=== PATIENT | female | born 1935 | race Caucasian/White ===

== ENCOUNTER 2019-05-23 11:40 | Inpatient (IN) | payer MEDICARE ==
[2019-05-23] MEDS ORDERED: ONDANSETRON 4 MG/2 ML VIAL IVP PRN (18:21)
[2019-05-23] MEDS ORDERED: NITROGLYCERIN SL TABS 0.4 MG TAB SUBLINGUAL PRN (18:21)
[2019-05-23] MEDS ORDERED: HEPARIN SODIUM,PORCINE 5,000 UNIT/ML 1 ML VIAL IV PRN (18:36)
[2019-05-23] MEDS ORDERED: HEPARIN SODIUM,PORCINE 5,000 UNIT/ML 1 ML VIAL IV ONE (18:36)
[2019-05-23] MEDS ORDERED: SODIUM CHLORIDE 0.9% 1,000 ML IV SCH (18:45)
[2019-05-23 19:08] LABS: Basophils # (A) 0.1 k/uL (0-0.2); Basophils % (A) 1 %; Eosinophils # (A) 0.1 k/uL (0-0.7); Eosinophils % (A) 2 %; HCT 40.6 % (34.0-46.0); HGB 13.2 gm/dL (11.4-16.0); Lymphocytes # (A) 1.8 k/uL (1.0-4.8); Lymphocytes % (A) 21 %; MCHC 32.6 g/dL (31.0-37.0); MCV 89.1 fL (80.0-100.0); Mean Platelet Volume 9.4; Monocytes # (A) 0.4 k/uL (0-1.0); Monocytes % (A) 4 %; Neutrophils # (A) 6.1 k/uL (1.3-7.7); Neutrophils % (A) 70 %; Platelet Count 144 k/uL (150-450); RBC 4.55 m/uL (3.80-5.40); RDW 12.5 % (11.5-15.5); WBC 8.6 k/uL (3.8-10.6)
[2019-05-23 19:26] LABS: INR 0.9 (<1.2); Partial Thromboplastin Time 24.4 sec (22.0-30.0); Prothrombin Time 9.9 sec (9.0-12.0)
[2019-05-23 20:41] LABS: Glucose,Whole Blood 182 mg/dL (75-99)
[2019-05-23] MEDS: METOPROLOL TARTRATE 50 MG TAB PO SCH (20:48)
[2019-05-23] MEDS: hydrALAZINE HCL 50 MG TAB PO SCH (20:48)
[2019-05-23] MEDS: INSULIN ASPART (NovoLOG) 100 UNIT/ML VIAL SQ SCH (20:55)
[2019-05-23] MEDS: HEPARIN SOD,PORK IN 0.45% NACL 25,000 UNIT in 0.45% NACL 1 250ML.BAG IV SCH (22:27)
[2019-05-24] MEDS: ACETAMINOPHEN TAB 325 MG TAB PO PRN (06:02)
[2019-05-24 06:25] LABS: Glucose,Whole Blood 149 mg/dL (75-99)
[2019-05-24] MEDS: INSULIN ASPART (NovoLOG) 100 UNIT/ML VIAL SQ SCH ×4 (06:29→21:23)
[2019-05-24 06:54] LABS: African American GFR (CKD) >90 (>60 ml/min/1.73 sqM); Anion Gap 40 mmol/L; Blood Urea Nitrogen 10 mg/dL (7-17); Carbon Dioxide 16 mmol/L (22-30); Chloride 91 mmol/L (98-107); Glucose 136 mg/dL (74-99); Non-African American GFR(CKD) >90 (>60 ml/min/1.73 sqM); Potassium 3.4 mmol/L (3.5-5.1); Sodium 147 mmol/L (137-145)
[2019-05-24 06:58] LABS: Basophils # (A) 0.1 k/uL (0-0.2); Basophils % (A) 1 %; Eosinophils # (A) 0.1 k/uL (0-0.7); Eosinophils % (A) 1 %; HGB 13.1 gm/dL (11.4-16.0); Lymphocytes # (A) 2.2 k/uL (1.0-4.8); Lymphocytes % (A) 27 %; MCH 30.2 pg (25.0-35.0); MCHC 34.4 g/dL (31.0-37.0); MCV 87.7 fL (80.0-100.0); Mean Platelet Volume 10.5; Monocytes # (A) 0.4 k/uL (0-1.0); Monocytes % (A) 5 %; Neutrophils % (A) 64 %; Platelet Count 107 k/uL (150-450); RBC 4.33 m/uL (3.80-5.40); RDW 12.6 % (11.5-15.5); WBC 7.9 k/uL (3.8-10.6)
[2019-05-24] MEDS: ASPIRIN 81 MG PO SCH (09:03)
[2019-05-24] MEDS: FAMOTIDINE 20 MG TAB PO SCH (09:03)
[2019-05-24] MEDS: hydrALAZINE HCL 50 MG TAB PO SCH ×3 (09:03→21:31)
[2019-05-24] MEDS: METOPROLOL TARTRATE 50 MG TAB PO SCH ×3 (09:03→21:31)
[2019-05-24] MEDS: LISINOPRIL 20 MG TAB PO SCH (09:04)
[2019-05-24] MEDS: amLODIPine 10 MG TAB PO SCH (09:04)
[2019-05-24] MEDS: EZETIMIBE 10 MG TAB PO SCH (09:04)
--- NOTE | 2019-05-24 10:49 | ECHOF ---
Referral Reason:triple vessel disease MEASUREMENTS -------- HEIGHT: 165.1 cm WEIGHT: 58.1 kg BP: RVIDd: 3.1 cm (< 3.3) IVSd: 1.4 cm (0.6 - 1.1) LVIDd: 3.4 cm (3.9 - 5.3) LVPWd: 1.4 cm (0.6 - 1.1) IVSs: 1.7 cm LVIDs: 2.3 cm LVPWs: 1.7 cm LAESV Index (A-L): 37.39 ml/m Ao Diam: 3.3 cm (2.0 - 3.7) AV Cusp: 1.9 cm (1.5 - 2.6) LA Diam: 3.7 cm (2.7 - 3.8) MV EXCURSION: 14.631 mm (> 18.000) MV EF SLOPE: 93 mm/s (70 - 150) EPSS: 0.5 cm MV E Palomo: 1.07 m/s MV DecT: 209 ms MV A Palomo: 1.49 m/s MV E/A Ratio: 0.72 RAP: 15.00 mmHg RVSP: 55.67 mmHg FINDINGS -------- Sinus rhythm. This was a technically good study. The left ventricular size is normal. There is moderate concentric left ventricular hypertrophy. T here is normal global left ventricular contractility. Overall left ventricular systolic function is normal with, an EF between 55 - 60 %. Increased Lap Grade II Diastolic Dysfunction. The right ventricle is mildly enlarged. LA is moderately dilated 34-39 ml/m2 The right atrial size is normal. Interatrial and interventricular septum intact. The aortic valve is trileaflet and appears structurally normal. There is no evidence of aortic regu rgitation. There is no evidence of aortic stenosis. Mild mitral annular calcification present. There is trace mitral regurgitation. [id number] tricuspid regurgitation present. There is moderate pulmonary hypertension. The r ight ventricular systolic pressure, as measured by Doppler, is 55.67mmHg. There is no pulmonic regurgitation present. The aortic root size is normal. The inferior vena cava is mildly dilated. CONCLUSIONS -------- 1. Sinus rhythm. 2. This was a technically good study. 3. The left ventricular size is normal. 4. There is moderate concentric left ventricular hypertrophy. 5. There is normal global left ventricular contractility. 6. Increased Lap Grade II Diastolic Dysfunction. 7. The right ventricle is mildly enlarged. 8. LA is moderately dilated 34-39 ml/m2 9. The right atrial size is normal. 10. Interatrial and interventricular septum intact. 11. The aortic valve is trileaflet and appears structurally normal. 12. There is no evidence of aortic regurgitation. 13. There is no evidence of aortic stenosis. 14. Mild mitral annular calcification present. 15. There is trace mitral regurgitation. 16. [id number] tricuspid regurgitation present. 17. There is moderate pulmonary hypertension. 18. The right ventricular systolic pressure, as measured by Doppler, is 55.67mmHg. 19. There is no pulmonic regurgitation present. 20. The aortic root size is normal. 21. The inferior vena cava is mildly dilated. [employer]: Kelsea Vann RDCS
[2019-05-24] MEDS: SODIUM CHLORIDE 0.9% 1,000 ML IV SCH (11:17)
[2019-05-24] MEDS: POTASSIUM CHLORIDE ER 20 MEQ TAB.ER PO SCH ×2 (11:17→12:32)
--- NOTE | 2019-05-24 11:28 | P.GSCN ---
History of Present Illness Consult date: 05/24/19 Reason for Consult: Triple-vessel coronary artery disease Requesting physician: Joaquin Yin History of present illness: This is an 83-year-old active female who follows on an outpatient basis with Dr. Trinidad. She has a previous medical history of hypertension, hyperlipidemia, type 2 diabetes, and family history of coronary artery disease. She presented to [facility] emergency room approximately a week ago with complaints of chest pain. EKG demonstrated sinus rhythm without acute ischemic changes. Troponins were negative 3. Chest x-ray demonstrated no acute process. She did spike a fever of 101 F, triggering cultures to be drawn and infectious disease to be consulted. She was discovered to have E. coli bacteremia. She was started on IV Rocephin. A heart murmur was heard. A transthoracic echocardiogram was completed demonstrating normal LV function with ejection fraction 55-60%, no wall motion abnormalities, trace mitral regurgitation with mild mitral valve prolapse and trace tricuspid regurgitation. She was recommended to undergo stress testing which was completed demonstrating reversible defect in the anteroseptal wall of the apex. Due to these findings she was recommended to have heart catheterization which was completed yesterday and which demonstrated triple-vessel coronary artery disease. Dr. Yin had her transferred to [facility] for cardiothoracic surgery evaluation. Currently she denies any chest pain or shortness of breath. She has been afebrile. She has no leukocytosis. Consultation was placed to Dr. Lr from cardiothoracic surgery for recommendations. Review of Systems Review of systems was completed and was negative except as noted. - Constitutional Reports fever - Cardiovascular Reports chest pain Past Medical History Past Medical History: Coronary Artery Disease (CAD), Diabetes Mellitus, Hyperlipidemia, Hypertension History of Any Multi-Drug Resistant Organisms: None Reported Past Surgical History: Tonsillectomy Additional Past Surgical History / Comment(s): Colonoscopy with polypectomy with Dr. Pavon Past Anesthesia/Blood Transfusion Reactions: No Reported Reaction Past Psychological History: No Psychological Hx Reported Smoking Status: Never smoker Past Alcohol Use History: None Reported Additional Past Alcohol Use History / Comment(s): Patient is a lifelong nonsmoker, no alcohol use, no illicit drug use, patient does not have home oxygen, no nebulizer, no CPAP. Past Drug Use History: None Reported - Past Family History Father Additional Family Medical History / Comment(s): Father in his 60s from a myocardial infarction with history of diabetes. Mother Additional Family Medical History / Comment(s): Mother in her 50s from a motor vehicle accident. Brother(s) Additional Family Medical History / Comment(s): Patient has one brother with heart disease. Medications and Allergies Home Medications Medication Instructions Recorded Confirmed Type Aspirin EC [Ecotrin] 81 mg PO DIRECTED 02/19/15 05/23/19 History Benazepril HCl [Lotensin] 30 mg PO DAILY 02/19/15 05/23/19 History Nadolol [Corgard] 40 mg PO DIRECTED 02/19/15 05/23/19 History amLODIPine [Norvasc] 10 mg PO DAILY 02/19/15 05/23/19 History Ascorbic Acid [Vitamin C] 2,000 mg PO DAILY 05/23/19 05/23/19 History Benazepril HCl [Lotensin] 20 mg PO HS 05/23/19 05/23/19 History Calcium Carbonate [Calcium] 600 mg PO DAILY 05/23/19 05/23/19 History Cinnamon Bark [Cinnamon] 1,000 mg PO DAILY 05/23/19 05/23/19 History Ezetimibe [Zetia] 10 mg PO DAILY 05/23/19 05/23/19 History Garlic 1 tab PO DAILY 05/23/19 05/23/19 History Glucosam/Oleksandr-Msm1/C/Stewart/Bosw 1 tab PO BID 05/23/19 05/23/19 History [Glucosamine-Chondroitin Tablet] Magnesium 200 mg PO DAILY 05/23/19 05/23/19 History Nadolol 60 mg PO DIRECTED 05/23/19 05/23/19 History Vitamin B Complex 1 cap PO DAILY 05/23/19 05/23/19 History Zinc Gluconate [Zinc] 50 mg PO DAILY 05/23/19 05/23/19 History Allergies Allergy/AdvReac Type Severity Reaction Status Date / Time [place] And Derivatives Allergy Unknown Verified 05/23/19 20:52 [[place]] Penicillins Allergy Unknown Verified 05/23/19 20:52 venom-honey bee Allergy Unknown Verified 05/23/19 20:52 [bee venom (honey bee)] cortisone AdvReac Flushed/Hot Verified 05/23/19 20:52 feeling Surgical - Exam Vital Signs Temp Pulse Resp BP Pulse Ox 98 F 68 18 147/65 99 05/23/19 18:05 05/23/19 18:05 05/23/19 18:05 05/23/19 18:05 05/23/19 18:05 - General well developed, well nourished, no distress, no pain - Eyes PERRL, normal ocular movement - ENT no hearing loss - Neck no masses, no bruits, trachea midline - Respiratory Lungs sounds clear bilaterally. Respirations even, nonlabored. Currently on room air with oxygen saturation 97%. No chest wall deformities. No clubbing or cyanosis present. - Cardiovascular S1, S2 present. Systolic murmur present. Regular rate and rhythm, sinus rhythm on telemetry. Palpable peripheral pulses bilaterally. No edema present. No calf pain or tenderness noted. - Abdomen Abdomen: soft, non tender, bowel sounds - Genitourinary Deferred - Rectum Deferred - Integumentary no rash, no growths - Neurologic normal coordination, normal sensation - Musculoskeletal normal gait, normal posture - Psychiatric oriented to time, oriented to person, oriented to place, speech is normal, memory intact Results - Labs 05/24/19 06:02 05/24/19 06:02 Abnormal Lab Results - Last 24 Hours (Table) 05/23/19 05/23/19 05/24/19 Range/Units 18:58 20:40 06:02 Plt Count 144 L 107 L (150-450) k/uL Sodium (137-145) mmol/L Potassium (3.5-5.1) mmol/L Chloride (98-107) mmol/L Carbon Dioxide (22-30) mmol/L Creatinine (0.52-1.04) mg/dL Glucose (74-99) mg/dL POC Glucose (mg/dL) 182 H (75-99) mg/dL Calcium (8.4-10.2) mg/dL 05/24/19 05/24/19 Range/Units 06:02 06:23 Plt Count (150-450) k/uL Sodium 147 H (137-145) mmol/L Potassium 3.4 L (3.5-5.1) mmol/L Chloride 91 L (98-107) mmol/L Carbon Dioxide 16 L (22-30) mmol/L Creatinine 0.37 L (0.52-1.04) mg/dL Glucose 136 H (74-99) mg/dL POC Glucose (mg/dL) 149 H (75-99) mg/dL Calcium 5.0 L* (8.4-10.2) mg/dL Diabetes panel 05/24/19 Range/Units 06:02 Sodium 147 H (137-145) mmol/L Potassium 3.4 L (3.5-5.1) mmol/L Chloride 91 L (98-107) mmol/L Carbon Dioxide 16 L (22-30) mmol/L BUN 10 (7-17) mg/dL Creatinine 0.37 L (0.52-1.04) mg/dL Glucose 136 H (74-99) mg/dL Calcium 5.0 L* (8.4-10.2) mg/dL Calcium panel 05/24/19 Range/Units 06:02 Calcium 5.0 L* (8.4-10.2) mg/dL Pituitary panel 05/24/19 Range/Units 06:02 Sodium 147 H (137-145) mmol/L Potassium 3.4 L (3.5-5.1) mmol/L Chloride 91 L (98-107) mmol/L Carbon Dioxide 16 L (22-30) mmol/L BUN 10 (7-17) mg/dL Creatinine 0.37 L (0.52-1.04) mg/dL Glucose 136 H (74-99) mg/dL Calcium 5.0 L* (8.4-10.2) mg/dL Adrenal panel 05/24/19 Range/Units 06:02 Sodium 147 H (137-145) mmol/L Potassium 3.4 L (3.5-5.1) mmol/L Chloride 91 L (98-107) mmol/L Carbon Dioxide 16 L (22-30) mmol/L BUN 10 (7-17) mg/dL Creatinine 0.37 L (0.52-1.04) mg/dL Glucose 136 H (74-99) mg/dL Calcium 5.0 L* (8.4-10.2) mg/dL - Imaging Chest x-ray: report reviewed EKG: image reviewed Additional studies: Cardiac catheterization films uploaded to our system and reviewed with Dr. Archibald Assessment and Plan Assessment: 1. Triple-vessel coronary artery disease 2. E. coli bacteremia, currently on IV Rocephin 3. Hypertension 4. Hyperlipidemia 5. Type 2 diabetes 6. Family history of coronary artery disease Plan: The patient was seen and examined at the bedside. Chart/diagnostics reviewed including the visit at [facility]. The case will be discussed in detail with Dr. Lr who will be here this afternoon to examine the patient. The usual perioperative course for open heart surgery was discussed in detail with the patient, all risks and benefits were reviewed, all questions were answered. At this time the patient is leaning towards stenting and does not want open heart surgery, however she is willing to listen to Dr. Lr with an open mind. We would recommend continuing aspirin, statin, beta judie therapy, however patient states she is intolerant to statins and has been treated with Zetia. If patient does become agreeable to consider open heart surgery, we will complete preoperative testing and calculate an STS risk score to be discussed with the patient. If she does refuse surgery, we will leave our contact information in case she changes her mind. Continue medical management of other comorbid conditions per primary care service. Thank you Dr. Yin for this consult. Please call us with any further questions. Time with Patient: Greater than 30
--- NOTE | 2019-05-24 12:15 | PN ---
PROGRESS NOTE Mrs. Evon Gonzales is a lady who was transferred from [facility]. She has history of degenerative joint disease, hypertension, hyperlipidemia. She presented with chest pain and had a positive stress test and had a cardiac cath. I reviewed the films today. She has a mid LAD 99% subtotal lesion, proximal RCA 80%-90%, very insignificant lesion of a very super dominant vessel and circumflex also has a moderate disease but is a nondominant vessel. She is comfortable resting without symptoms. Vitals are stable. I reviewed the angiograms, talked to the patient and recommended aortocoronary bypass surgery as a first approach, but if she refuses, we can certainly do a percutaneous intervention. The patient is going to be seen by Dr. Lr today. Vitals are stable, no JVD. S1, S2 heard normally, short systolic murmur noted. Lungs are clear. Abdomen and lower extremity exam unchanged. Plan is to obtain an echocardiogram here. Continue her current medications and based on clinical course, will make further recommendations. MMODL / IJN: [id number] /
[2019-05-24 14:24] LABS: Glucose,Whole Blood 156 mg/dL (75-99)
--- NOTE | 2019-05-24 14:57 | P.HPIM ---
History of Present Illness H&P Date: 05/24/19 This is an 83-year-old female patient of Shayne Gerardo NP, with past medical history of diabetes mellitus type 2, hypertension, vitamin D deficiency. Patient initially presented to [facility] on May 18 due to midsternal dull chest pain without radiation. EKG was a sinus rhythm with left ventricular hypertrophy. Troponins negative. Chest x-ray negative. CAT scan of the brain negative for acute findings. Patient had positive blood culture for E. coli. Echocardiogram showed no vegetation with EF of 55-60%. Patient was seen by it network administrator and underwent stress testing that showed abnormal areas of ischemia. Patient underwent heart catheterization that revealed triple- vessel disease to the RCA,, left circumflex and LAD. Patient was found to have E. coli bacteremia with negative urine culture. CAT scan of the abdomen was normal. Source of bacteremia was not identified. Patient has been on Ceftin. Hydralazine was added for blood pressure management. Patient is noted to be intolerant of statins and continued unsteady a. Patient is also on aspirin, Lopressor and Prinivil. She has been transferred to [facility] as a direct admission to be evaluated by cardiothoracic surgery for CABG. Patient is currently on a heparin drip and consults also in place with cardiology and Dr. Long. A repeat echocardiogram has been ordered by [facility] Review of Systems All systems: negative Constitutional: Denies chills, Denies fever Eyes: denies blurred vision, denies pain Ears, nose, mouth and throat: Denies headache, Denies sore throat Cardiovascular: Denies chest pain, Denies shortness of breath Respiratory: Denies cough Gastrointestinal: Denies abdominal pain, Denies diarrhea, Denies nausea, Denies vomiting Genitourinary: Denies dysuria, Denies hematuria Musculoskeletal: Denies myalgias Integumentary: Denies pruritus, Denies rash Neurological: Denies numbness, Denies weakness Psychiatric: Denies anxiety, Denies depression Endocrine: Denies fatigue, Denies weight change Past Medical History Past Medical History: Diabetes Mellitus, Hypertension History of Any Multi-Drug Resistant Organisms: None Reported Past Surgical History: No Surgical Hx Reported, Tonsillectomy Additional Past Surgical History / Comment(s): Colonoscopy with polypectomy with Dr. Pavon Past Psychological History: No Psychological Hx Reported Smoking Status: Never smoker Past Alcohol Use History: None Reported Additional Past Alcohol Use History / Comment(s): Patient is a lifelong nonsmoker, no alcohol use, no illicit drug use, patient does not have home oxygen, no nebulizer, no CPAP. Past Drug Use History: None Reported - Past Family History Father Additional Family Medical History / Comment(s): Father in his 60s from a myocardial infarction with history of diabetes. Mother Additional Family Medical History / Comment(s): Mother in her 50s from a motor vehicle accident. Brother(s) Additional Family Medical History / Comment(s): Patient has one brother with heart disease. Medications and Allergies Home Medications Medication Instructions Recorded Confirmed Type Aspirin EC [Ecotrin] 81 mg PO DIRECTED 02/19/15 05/23/19 History Benazepril HCl [Lotensin] 30 mg PO DAILY 02/19/15 05/23/19 History Nadolol [Corgard] 40 mg PO DIRECTED 02/19/15 05/23/19 History amLODIPine [Norvasc] 10 mg PO DAILY 02/19/15 05/23/19 History Ascorbic Acid [Vitamin C] 2,000 mg PO DAILY 05/23/19 05/23/19 History Benazepril HCl [Lotensin] 20 mg PO HS 05/23/19 05/23/19 History Calcium Carbonate [Calcium] 600 mg PO DAILY 05/23/19 05/23/19 History Cinnamon Bark [Cinnamon] 1,000 mg PO DAILY 05/23/19 05/23/19 History Ezetimibe [Zetia] 10 mg PO DAILY 05/23/19 05/23/19 History Garlic 1 tab PO DAILY 05/23/19 05/23/19 History Glucosam/Oleksandr-Msm1/C/Stewart/Bosw 1 tab PO BID 05/23/19 05/23/19 History [Glucosamine-Chondroitin Tablet] Magnesium 200 mg PO DAILY 05/23/19 05/23/19 History Nadolol 60 mg PO DIRECTED 05/23/19 05/23/19 History Vitamin B Complex 1 cap PO DAILY 05/23/19 05/23/19 History Zinc Gluconate [Zinc] 50 mg PO DAILY 05/23/19 05/23/19 History Allergies Allergy/AdvReac Type Severity Reaction Status Date / Time [place] And Derivatives Allergy Unknown Verified 05/23/19 20:52 [[place]] Penicillins Allergy Unknown Verified 05/23/19 20:52 venom-honey bee Allergy Unknown Verified 05/23/19 20:52 [bee venom (honey bee)] cortisone AdvReac Flushed/Hot Verified 05/23/19 20:52 feeling Physical Exam Vitals: Vital Signs Temp Pulse Resp BP Pulse Ox 05/24/19 03:20 98.6 F 67 18 162/70 100 05/23/19 23:01 65 18 135/70 98 05/23/19 20:00 98 F 68 18 147/65 99 05/23/19 18:05 98 F 68 18 147/65 99 Intake and Output 05/23/19 05/24/19 05/24/19 22:59 06:59 14:59 Intake Total 59.717 Balance 59.717 Intake: Intake, IV Titration 59.717 Amount Heparin Sod,Pork in 0.45% 59.717 NaCl 25,000 unit In 0.45 % NaCl 1 250ml.bag @ 12 UNITS/KG/HR 6.864 mls/hr IV .Q24H [facility] Rx#: [id number] Other: # Voids 1 1 Weight 57.2 kg 58.1 kg Gen: This is an 83-year-old female. Patient is in bed and appears to be in no acute distress. Patient ambulated to the bathroom and gait was steady. HEENT: Head is atraumatic, normocephalic. Pupils equal, round. Sclerae is anicteric. NECK: Supple. No JVD. No lymphadenopathy. No thyromegaly. LUNGS: Clear to auscultation. No wheezes or rhonchi. No intercostal retractions . HEART: Regular rate and rhythm. Systolic murmur. ABDOMEN: Soft. Bowel sounds are present. No masses. No tenderness. EXTREMITIES: No pedal edema. No calf tenderness. NEUROLOGICAL: Patient is awake, alert and oriented x3. Cranial nerves 2 through 12 are grossly intact. Results CBC & Chem 7: 05/24/19 06:02 05/24/19 06:02 Labs: Abnormal Lab Results - Last 24 Hours (Table) 05/23/19 05/23/19 05/24/19 Range/Units 18:58 20:40 06:02 Plt Count 144 L 107 L (150-450) k/uL Sodium (137-145) mmol/L Potassium (3.5-5.1) mmol/L Chloride (98-107) mmol/L Carbon Dioxide (22-30) mmol/L Creatinine (0.52-1.04) mg/dL Glucose (74-99) mg/dL POC Glucose (mg/dL) 182 H (75-99) mg/dL Calcium (8.4-10.2) mg/dL 05/24/19 05/24/19 Range/Units 06:02 06:23 Plt Count (150-450) k/uL Sodium 147 H (137-145) mmol/L Potassium 3.4 L (3.5-5.1) mmol/L Chloride 91 L (98-107) mmol/L Carbon Dioxide 16 L (22-30) mmol/L Creatinine 0.37 L (0.52-1.04) mg/dL Glucose 136 H (74-99) mg/dL POC Glucose (mg/dL) 149 H (75-99) mg/dL Calcium 5.0 L* (8.4-10.2) mg/dL Thrombosis Risk Factor Assmnt - DVT/VTE Prophylaxis DVT/VTE Prophylaxis: Pharmacologic Prophylaxis ordered - Choose All That Apply Any of the Below Risk Factors Present?: Yes Each Factor Represents 1 point: Acute [place] Other Risk Factors: Yes Each Risk Factor Represents 3 Points: Age 75 years or older Thrombosis Risk Factor Assessment Total Risk Factor Score: 4 Thrombosis Risk Factor Assessment Level: Moderate Risk Assessment and Plan Plan: 1. Triple-vessel coronary artery disease. Patient transferred from [facility] for cardiothoracic surgery evaluation. Repeat echocardiogram has been ordered. Cardiology consult appreciated. Continue aspirin 81 mg daily, Lopressor 50 mg 3 times daily, heparin drip. 2. Hypertension. Continue Norvasc 10 mg daily, hydralazine 50 mg 3 times daily, lisinopril 20 mg daily. 3. Diabetes mellitus type 2. Continue NovoLog scale 4. Hyperlipidemia. Continue Zetia 5. E. coli bacteremia of unclear source. Consult with Dr. Long. Patient to continue course of Ceftin, currently on ceftriaxone. 6. GI prophylaxis. Pepcid. 7. DVT prophylaxis. Heparin drip. Patient will be admitted to the hospital for a minimum of 2 night stay. Discharge plan: Return home Impression and plan of care have been directed as dictated by the signing physician. Laura Mina nurse practitioner acting as scribe for signing physician.
[2019-05-24 16:41] LABS: Glucose,Whole Blood 276 mg/dL (75-99)
--- NOTE | 2019-05-24 17:55 | CONS ---
CONSULTATION DATE OF SERVICE: 05/24/2019 REASON FOR CONSULTATION: E coli bacteremia secondary to urinary source. HISTORY OF PRESENT ILLNESS: The patient is an 83-year-old female who presented to [facility] with the chief complaints of fever and chills. The patient there was noticed to have evidence of E coli bacteremia thought to be secondary to urinary source. CT of abdomen and pelvis was negative. Patient's follow-up blood culture was negative. The patient also complained of some chest pain. She was noticed to have an abnormal stress test. Subsequently she did have a cardiac cath completed yesterday with evidence of 3-vessel disease. Subsequently the patient was transferred to [facility] to be evaluated by CT Surgery. The patient is currently free of chest pain. The patient denies any fever or any chills. No shortness of breath or cough. No nausea, vomiting, abdominal pain or diarrhea. REVIEW OF SYSTEMS: Positive points have been mentioned in HPI; other systems negative. Past medical and surgical history reviewed. Medications reviewed. ALLERGIES: ALLERGIES include PENICILLIN and CORTISONE. CURRENT MEDICATIONS: 1. Tylenol. 2. Norvasc. 3. Aspirin. 4. Rocephin 2 grams daily. 5. Zetia. 6. Pepcid. 7. Heparin. 8. Hydralazine. 9. NovoLog. 10.Zestril. 11.Lopressor. 12.Zofran. PHYSICAL EXAMINATION: Blood pressure is 151/76, pulse of 57, temperature 98. She is 97% on room air. General description is an elderly female lying in bed in no distress. No tachypnea or accessory muscle of respiration use. HEENT examination shows no pallor or scleral icterus. Oral mucosa membrane is dry. No pharyngeal erythema or thrush. NECK: Trachea central. No thyromegaly. LUNGS: Unlabored breathing. Clear to auscultation. No wheeze or crackle. HEART: S1, S2. Regular rate and rhythm. ABDOMEN: Soft. No tenderness. EXTREMITIES: No edema of the feet. LABS: Hemoglobin 13.1, white count 7.9, BUN of 10, creatinine 0.37. DIAGNOSTIC IMPRESSION AND PLAN: Patient with Escherichia coli bacteremia. Source is likely urinary in this patient who has no evidence of other source of infection. CT of abdomen and pelvis was negative. Follow-up blood culture has been negative. PLAN: 1. Rocephin 2 grams daily to continue transition to oral antibiotic on discharge. 2. Thank you for this consultation. Will follow this patient along with you. Family at the bedside. Their questions were answered. MMODL / IJN: [id number] /
[2019-05-24] MEDS: HEPARIN SOD,PORK IN 0.45% NACL 25,000 UNIT in 0.45% NACL 1 250ML.BAG IV SCH ×2 (19:59→21:39)
[2019-05-24 21:07] LABS: Glucose,Whole Blood 131 mg/dL (75-99)
[2019-05-25 06:22] LABS: Glucose,Whole Blood 129 mg/dL (75-99)
[2019-05-25] MEDS: INSULIN ASPART (NovoLOG) 100 UNIT/ML VIAL SQ SCH ×4 (06:28→21:56)
[2019-05-25 06:49] LABS: African American GFR (CKD) >90 (>60 ml/min/1.73 sqM); Anion Gap 5 mmol/L; Blood Urea Nitrogen 13 mg/dL (7-17); C Reactive Protein <5.0 mg/L (<10.0); Calcium 9.1 mg/dL (8.4-10.2); Carbon Dioxide 24 mmol/L (22-30); Chloride 110 mmol/L (98-107); Glucose 128 mg/dL (74-99); Non-African American GFR(CKD) 90 (>60 ml/min/1.73 sqM); Potassium 4.1 mmol/L (3.5-5.1); Sodium 139 mmol/L (137-145)
[2019-05-25] MEDS: FAMOTIDINE 20 MG TAB PO SCH (08:18)
[2019-05-25] MEDS: ASPIRIN 81 MG PO SCH (08:19)
[2019-05-25] MEDS: amLODIPine 10 MG TAB PO SCH (08:19)
[2019-05-25] MEDS: METOPROLOL TARTRATE 50 MG TAB PO SCH ×3 (08:19→21:55)
[2019-05-25] MEDS: hydrALAZINE HCL 50 MG TAB PO SCH ×3 (08:19→21:55)
[2019-05-25] MEDS: LISINOPRIL 20 MG TAB PO SCH (08:19)
[2019-05-25] MEDS: SODIUM CHLORIDE 0.9% 1,000 ML IV SCH (08:21)
[2019-05-25] MEDS: EZETIMIBE 10 MG TAB PO SCH (08:23)
[2019-05-25 11:47] LABS: Glucose,Whole Blood 190 mg/dL (75-99)
--- NOTE | 2019-05-25 14:55 | PN ---
PROGRESS NOTE Mrs Gonzales is a lady with a triple-vessel CAD, who has refused to have aortocoronary bypass surgery and wishes to go for PTCA and stenting and Dr. Yin is going to perform procedure. She is comfortable, resting, denies chest pain, S1-S2 heard normally. Lungs are clear. Abdomen and lower extremity exam unchanged. She will have a staged intervention of the mid LAD and proximal RCA. RCA is a very super dominant vessel. Circumflex can be addressed by medical therapy for now. Vitals are stable. Physical exam with no new significant findings. MMODL / IJN: [id number] /
--- NOTE | 2019-05-25 15:11 | P.PN ---
Subjective Progress Note Date: 05/25/19 This is an 83-year-old female patient of Shayne Gerardo NP, with past medical history of diabetes mellitus type 2, hypertension, vitamin D deficiency. Patient initially presented to [facility] on May 18 due to midsternal dull chest pain without radiation. EKG was a sinus rhythm with left ventricular hypertrophy. Troponins negative. Chest x-ray negative. CAT scan of the brain negative for acute findings. Patient had positive blood culture for E. coli. Echocardiogram showed no vegetation with EF of 55-60%. Patient was seen by greens keeper and underwent stress testing that showed abnormal areas of ischemia. Patient underwent heart catheterization that revealed triple- vessel disease to the RCA,, left circumflex and LAD. Patient was found to have E. coli bacteremia with negative urine culture. CAT scan of the abdomen was normal. Source of bacteremia was not identified. Patient has been on Ceftin. Hydralazine was added for blood pressure management. Patient is noted to be intolerant of statins and continued unsteady a. Patient is also on aspirin, Lopressor and Prinivil. She has been transferred to [facility] as a direct admission to be evaluated by cardiothoracic surgery for CABG. Patient is currently on a heparin drip and consults also in place with cardiology and Dr. Long. A repeat echocardiogram has been ordered by cardiolo gy 05/25: Echocardiogram reveals EF of 55-60% with moderate concentric left ventricular hypertrophy, grade 2 diastolic dysfunction, LV moderately dilated, trace mitral regurgitation, mild to moderate tricuspid regurgitation, moderate pulmonary hypertension. Dr. JOSE A Archibald is planning for PTCA and stenting with Dr. Yin this afternoon. Patient will need staged intervention of the mid LAD and proximal RCA. Patient denies having any chest pain, shortness of breath, lightheadedness or dizziness. [id number] is at the bedside. All questions have been answered. Patient has been seen by Dr. Long with plan for IV Rocephin for now. Plan to transition to oral antibiotics at discharge. Review of Systems Constitutional: Denies chills, Denies fever Eyes: denies blurred vision, denies pain Ears, nose, mouth and throat: Denies headache, Denies sore throat Cardiovascular: Denies chest pain, Denies shortness of breath Respiratory: Denies cough but denies sputum production, denies respiratory infection Gastrointestinal: Denies abdominal pain, Denies diarrhea, Denies nausea, Denies vomiting Genitourinary: Denies dysuria, Denies hematuria Musculoskeletal: Denies myalgias Integumentary: Denies pruritus, Denies rash Neurological: Denies numbness, Denies weakness Psychiatric: Denies anxiety, Denies depression Endocrine: Denies fatigue, Denies weight change Objective - Vital Signs Vital signs: Vital Signs Temp 97.2 F L 05/25/19 11:01 Pulse 68 05/25/19 11:01 Resp 16 05/25/19 11:01 BP 150/71 05/25/19 11:01 Pulse Ox 98 05/25/19 11:01 Intake & Output 05/24/19 05/25/19 05/25/19 18:59 06:59 18:59 Intake Total 561.674 271.317 480 Output Total 300 Balance 561.674 271.317 180 Weight 58.5 kg Intake: Intake, IV Titration 159.674 31.317 240 Amount Heparin Sod,Pork in 0.45% 159.674 31.317 NaCl 25,000 unit In 0.45 % NaCl 1 250ml.bag @ 12 UNITS/KG/HR 6.864 mls/hr IV .Q24H AL Rx#: [id number] Sodium Chloride 0.9% 1, 240 000 ml @ 20 mls/hr IV . Q24H AL Rx#:[id number] Oral 402 240 240 Output: Urine 300 Other: Voiding Method Toilet # Voids 4 2 1 # Bowel Movements 2 - Exam Gen: This is an 83-year-old female. Patient is in bed and appears to be in no acute distress. HEENT: Head is atraumatic, normocephalic. Pupils equal, round. Sclerae is anicteric. NECK: Supple. No JVD. No lymphadenopathy. No thyromegaly. LUNGS: Clear to auscultation. No wheezes or rhonchi. No intercostal retractions. HEART: Regular rate and rhythm. Systolic murmur. ABDOMEN: Soft. Bowel sounds are present. No masses. No tenderness. EXTREMITIES: No pedal edema. No calf tenderness. NEUROLOGICAL: Patient is awake, alert and oriented x3. Cranial nerves 2 through 12 are grossly intact. - Labs CBC & Chem 7: 05/24/19 06:02 05/25/19 05:43 Labs: Abnormal Lab Results - Last 24 Hours (Table) 05/24/19 05/24/19 05/24/19 Range/Units 11:56 13:01 16:39 APTT 33.8 H (22.0-30.0) sec Chloride (98-107) mmol/L Creatinine (0.52-1.04) mg/dL Glucose (74-99) mg/dL POC Glucose (mg/dL) 156 H 276 H (75-99) mg/dL 05/24/19 05/25/19 05/25/19 Range/Units 21:06 01:10 05:43 APTT 45.8 H (22.0-30.0) sec Chloride 110 H (98-107) mmol/L Creatinine 0.50 L (0.52-1.04) mg/dL Glucose 128 H (74-99) mg/dL POC Glucose (mg/dL) 131 H (75-99) mg/dL 05/25/19 05/25/19 Range/Units 06:21 11:46 APTT (22.0-30.0) sec Chloride (98-107) mmol/L Creatinine (0.52-1.04) mg/dL Glucose (74-99) mg/dL POC Glucose (mg/dL) 129 H 190 H (75-99) mg/dL Assessment and Plan Plan: 1. Triple-vessel coronary artery disease. Patient transferred from [facility] for cardiothoracic surgery evaluation. Repeat echocardiogram as above. Patient has declined open-heart surgery. Cardiology consult appreciated. Patient is scheduled for PTCA and stenting with Dr. Yin this afternoon. Continue aspirin 81 mg daily, Lopressor 50 mg 3 times daily, heparin drip. 2. Hypertension. Continue Norvasc 10 mg daily, hydralazine 50 mg 3 times daily, lisinopril 20 mg daily. 3. Diabetes mellitus type 2. Continue NovoLog scale 4. Hyperlipidemia. Continue Zetia 5. E. coli bacteremia of unclear source. Consult with Dr. Long. Patient to continue course of Ceftin, currently on ceftriaxone. 6. GI prophylaxis. Pepcid. 7. DVT prophylaxis. Heparin drip. Discharge plan: Return home on Impression and plan of care have been directed as dictated by the signing physician. Laura Mina nurse practitioner acting as scribe for signing physician.
[2019-05-25] MEDS ORDERED: LIDOCAINE 1% INJ 10MG/ML (20 ML MDV) ONE (16:59)
[2019-05-25] MEDS ORDERED: LIDOCAINE 1% INJ 10MG/ML (20 ML MDV) SQ ONE (17:10)
[2019-05-25] MEDS ORDERED: MIDAZOLAM 2 MG/2 ML VIAL IV ONE (17:12)
[2019-05-25] MEDS ORDERED: BIVALIRUDIN BOLUS 250 MG/50 ML IV ONE ×2 (17:16)
[2019-05-25] MEDS ORDERED: SODIUM CHLORIDE 0.9% IV ONE (17:17)
[2019-05-25] MEDS ORDERED: IV FLUID CONTINUATION 250 ML IV ONE (17:17)
[2019-05-25] MEDS ORDERED: BIVALIRUDIN IV ONE (17:17)
[2019-05-25] MEDS: NITROGLYCERIN 1000MCG/10ML SYRINGE INTRACORON ONE ×2 (17:30→17:43)
[2019-05-25] MEDS ORDERED: TICAGRELOR 90 MG TAB ONE (17:41)
[2019-05-25] MEDS ORDERED: TICAGRELOR 90 MG TAB PO ONE (17:44)
[2019-05-25] MEDS ORDERED: ZOLPIDEM 5 MG TAB PO PRN (17:51)
[2019-05-25] MEDS ORDERED: ATROPINE SULFATE 0.1 MG/ML 10ML SYRINGE IV PRN (17:51)
[2019-05-25] MEDS ORDERED: NITROGLYCERIN SL TABS 0.4 MG TAB SUBLINGUAL PRN (17:51)
[2019-05-25] MEDS ORDERED: MAG HYDROX/AL HYDROX/SIMETH 30 ML CUP PO PRN (17:51)
[2019-05-25] MEDS ORDERED: RX INFO: IV CONTRAST WAS GIVEN 1 EACH MISC MISCELLANE PRN (17:51)
[2019-05-25] MEDS ORDERED: IOPAMIDOL-370 125ML BTL INJ ONE (17:59)
[2019-05-25] MEDS ORDERED: SODIUM CHLORIDE 0.9% 1,000 ML IV SCH (18:00)
[2019-05-25 18:54] LABS: Glucose,Whole Blood 179 mg/dL (75-99)
[2019-05-25 20:48] LABS: Glucose,Whole Blood 245 mg/dL (75-99)
[2019-05-25] MEDS: ACETAMINOPHEN TAB 325 MG TAB PO PRN (21:55)
--- NOTE | 2019-05-25 23:10 | PTCA ---
PERCUTANEOUSTRANS CORORONARY ANGIOGRAPHY DATE OF PROCEDURE: 05/25/2019 PERFORMING PHYSICIAN: Joaquin Yin MD. PROCEDURES PERFORMED: 1. Successful stenting of the mid left anterior descending artery using a 2.0 x 12 mm Epworth drug-eluting stent with an excellent angiographic result. 2. Successful stenting of the proximal LAD using 2.25 x 15 mm Xience drug-eluting stent with an excellent angiographic result. INDICATION: This is an 83-year-old female patient with hypertension and dyslipidemia who presented initially to [facility] with chest discomfort and ruled out for acute coronary event. She underwent myocardial perfusion imaging stress test and that revealed an anterior ischemia. Because of that, she underwent a heart catheterization which revealed severe triple-vessel coronary artery disease. She was turned down by Surgery. Because of that, she was brought today to undergo an intervention. APPROACH: Right common femoral artery. COMPLICATIONS: None. LEVEL OF SEDATION: Moderate, with sedation length of 42 minutes. PROCEDURE DESCRIPTION: After obtaining informed consent, the patient was brought to the cardiac technical laboratory asst. The right common femoral artery was cannulated using micropuncture technique. The micropuncture wire passed easily. Then I placed a 6-Ku[place]i sheath at the right common femoral artery. After that, I did start anticoagulation with Angiomax. The left main was engaged using an XP35 LAD guide. I did wire the LAD using a Whisper wire. After that I did balloon angioplasty of the LAD using 1.5 x 12 mm, then 2.0 x 12 mm balloon. After that I did stenting for the mid LAD using Epworth 2.0 x 12 mm which was positioned under fluoroscopic guidance and deployed under 10 atmospheres for 20 seconds. For the proximal LAD, I deployed 2.25 x 15 mm Xience ARTIE where the stent again was positioned under fluoroscopic guidance and deployed under 12 atmospheres for 20 seconds. The following angiogram showed excellent angiographic results and the procedure was completed without any complication. POST-PROCEDURE MANAGEMENT: 1. Dual anti-platelet therapy. 2. Risk factors modifications. 3. Follow up with the patient. MMODL / IJN: [id number] /
--- NOTE | 2019-05-26 05:11 | PN ---
PROGRESS NOTE DATE OF SERVICE: 05/25/2019 REASON FOR FOLLOWUP: E coli bacteremia. INTERVAL HISTORY: The patient was seen on rounds this afternoon. The patient has been afebrile. She was breathing comfortably. Awaiting for her cardiac cath. No chest pain, shortness of breath or cough. No nausea, no vomiting. No abdominal pain, no diarrhea. PHYSICAL EXAMINATION: Blood pressure 166/77 with a pulse of 81, temperature 98. She is 97% on room air. General description is an elderly female lying in bed in no distress. RESPIRATORY SYSTEM: Unlabored breathing, clear to auscultation anteriorly. HEART: S1, S2. Regular rate and rhythm. ABDOMEN: Soft, no tenderness. LABS: Creatinine 0.50. DIAGNOSTIC IMPRESSION AND PLAN: Patient with Escherichia coli bacteremia, source likely urinary. Follow-up blood culture was negative at [facility]. Patient is currently covered with Rocephin 2 grams daily to continue with transition to oral antibiotic on discharge. MMODL / IJN: [id number] /
[2019-05-26 06:25] LABS: Glucose,Whole Blood 128 mg/dL (75-99)
[2019-05-26] MEDS: INSULIN ASPART (NovoLOG) 100 UNIT/ML VIAL SQ SCH ×2 (06:26→11:57)
[2019-05-26 07:04] LABS: African American GFR (CKD) >90 (>60 ml/min/1.73 sqM); Non-African American GFR(CKD) 86 (>60 ml/min/1.73 sqM)
[2019-05-26] MEDS ORDERED: ASPIRIN 81 MG PO SCH ×2 (09:00)
[2019-05-26] MEDS: hydrALAZINE HCL 50 MG TAB PO SCH (09:21)
[2019-05-26] MEDS: amLODIPine 10 MG TAB PO SCH (09:21)
[2019-05-26] MEDS: FAMOTIDINE 20 MG TAB PO SCH (09:22)
[2019-05-26] MEDS: LISINOPRIL 20 MG TAB PO SCH (09:22)
[2019-05-26] MEDS: METOPROLOL TARTRATE 50 MG TAB PO SCH (09:22)
[2019-05-26] MEDS: EZETIMIBE 10 MG TAB PO SCH (09:22)
[2019-05-26 10:30] VITALS: BP 126/67; PULSE 68; RESP 18; TEMP 98
[2019-05-26] MEDS ORDERED: CLOPIDOGREL 75 MG TAB PO SCH (11:15)
[2019-05-26 11:28] VITALS: BMI 21.0
--- NOTE | 2019-05-26 11:32 | P.PN ---
Subjective Progress Note Date: 05/26/19 This is a pleasant 83-year-old female with past medical history significant for diabetes, hypertension, hyperlipidemia, she presented to [facility] with complaints of chest discomfort. She underwent a stress test there that revealed abnormality, subsequently underwent a cardiac ca theterization which revealed triple vessel coronary artery disease involving the RCA, circumflex, and LAD. Patient was found to have E. coli bacteremia with negative urine culture as well. The patient was initially transferred over here, cardiothoracic consultation was requested. Patient opted not to have a coronary artery bypass grafting surgery, she preferred to go undergo percutaneous intervention. Yesterday the patient underwent successful stenting of the mid LAD as well as successful stenting of the proximal LAD by Dr. Lam. She was seen and examined this morning, hemodynamically stable. Blood pressure 126/60, heart rate in the 60s, 96% on room air. Creatinine this morning 0.5. Patient overall feels well, denies any chest discomfort and breathing is stable. Patient was seen today by Dr. Abby Archibald, she will be discharged home today from our perspective, follow-up appointment will be made with Dr. Lam in the office post discharge. She will return at a later date for further intervention of the circumflex artery. Objective - Vital Signs Vital signs: Vital Signs Temp 98.0 F 05/26/19 08:00 Pulse 68 05/26/19 08:00 Resp 18 05/26/19 08:00 BP 126/67 05/26/19 08:00 Pulse Ox 96 05/26/19 08:00 Intake & Output 05/25/19 05/26/19 05/26/19 18:59 06:59 18:59 Intake Total 863.212 540 240 Output Total 750 1200 Balance 113.212 -660 240 Weight 57.4 kg Intake: IV 171 Intake, IV Titration 452.212 Amount Heparin Sod,Pork in 0.45% 212.212 NaCl 25,000 unit In 0.45 % NaCl 1 250ml.bag @ 12 UNITS/KG/HR 6.864 mls/hr IV .Q24H AL Rx#: [id number] Sodium Chloride 0.9% 1, 240 000 ml @ 20 mls/hr IV . Q24H AL Rx#:[id number] Oral 240 540 240 Output: Urine 750 1200 Other: Voiding Method Toilet Toilet # Voids 1 1 # Bowel Movements 1 - Exam Gen: This is an 83-year-old female. Patient is in bed and appears to be in no acute distress. Patient ambulated to the bathroom and gait was steady. HEENT: Head is atraumatic, normocephalic. Pupils equal, round. Sclerae is anicteric. NECK: Supple. No JVD. No lymphadenopathy. No thyromegaly. LUNGS: Clear to auscultation. No wheezes or rhonchi. No intercostal re tractions. HEART: Regular rate and rhythm. Systolic murmur. ABDOMEN: Soft. Bowel sounds are present. No masses. No tenderness. EXTREMITIES: Right groin, soft, no evidence of any hematoma. No pedal edema. No calf tenderness. NEUROLOGICAL: Patient is awake, alert and oriented x3. Cranial nerves 2 through 12 are grossly intact. - Labs CBC & Chem 7: 05/24/19 06:02 05/26/19 06:22 Labs: Abnormal Lab Results - Last 24 Hours (Table) 05/25/19 05/25/19 05/25/19 Range/Units 11:46 18:53 20:47 POC Glucose (mg/dL) 190 H 179 H 245 H (75-99) mg/dL 05/26/19 Range/Units 06:10 POC Glucose (mg/dL) 128 H (75-99) mg/dL Assessment and Plan Plan: Assessment and Plan: 1. Chest pain, status post cardiac catheterization which revealed triple vessel coronary artery disease, status post angioplasty and stenting of the LAD yesterday 2. Hypertension. 3. Diabetes mellitus type 2. 4. Hyperlipidemia. 5. E. coli bacteremia of unclear source. Plan Dr. JOSE A Archibald has cleared the patient for discharge today. He was initially placed on Brilinta, but because of the cost, the Brilinta will be discontinued and patient will be discharged home on Plavix and aspirin. Follow-up appointment in the office with Dr. Lam post discharge. She will return at a later date for intervention of the circumflex. DNP note has been reviewed, I agree with a documented findings and plan of care. Patient was seen and examined.
[2019-05-26 11:36] LABS: Glucose,Whole Blood 186 mg/dL (75-99)
[2019-05-26] MEDS: SODIUM CHLORIDE 0.9% 1,000 ML IV SCH (11:48)
--- NOTE | 2019-05-26 14:14 | PN ---
PROGRESS NOTE DATE OF SERVICE: 05/26/2019 REASON FOR FOLLOWUP: E coli bacteremia, possible urinary source. INTERVAL HISTORY: The patient is currently afebrile. The patient has been breathing comfortably. The patient denies having any chest pain, shortness of breath, or cough. No nausea or vomiting. No abdominal pain. No diarrhea. PHYSICAL EXAMINATION: Blood pressure is 126/67 with a pulse of 58, temperature 98, she is 96% on room air. General description is an elderly female lying in bed in no distress. RESPIRATORY SYSTEM: Unlabored breathing. Clear to auscultation anteriorly. HEART: S1, S2. Regular rate and rhythm. ABDOMEN: Soft, no tenderness. LABS: No new labs have been obtained today. DIAGNOSTIC IMPRESSION AND PLAN: Patient with Escherichia coli bacteremia, source likely urinary. The patient has had more than 10 days of IV antibiotic therapy, this should be more than enough. He was given a week worth of oral Rocephin and close outpatient followup. Questions and concerns were answered. MMODL / IJN: [id number] /
--- NOTE | 2019-05-26 15:46 | P.DS ---
Providers Date of admission: 05/23/19 17:41 Expected date of discharge: 05/26/19 Attending physician: Viktor Trinidad Consults: 05/23/19 18:14 Consult Physician Routine Consulting Provider: Joaquin Yin Consult Reason/Comments: heart cath Do you want consulting provider notified?: Already Contacted Placement Type Exists?: Yes 05/23/19 18:33 Consult Physician Routine Consulting Provider: Dave Yip Consult Reason/Comments: triple vessel disease Do you want consulting provider notified?: Yes, Notify in am Placement Type Exists?: Yes 05/23/19 18:40 Consult Physician Routine Consulting Provider: Haven Long Consult Reason/Comments: gram - bacteremia Do you want consulting provider notified?: Already Contacted 05/25/19 17:51 Consult Physician Routine Consulting Provider: [facility] Consult Reason/Comments: Post Interventional patient Do you want consulting provider notified?: Already Contacted [facility] Course: This is an 83-year-old female patient of Shayne Gerardo NP, with past medical history of diabetes mellitus type 2, hypertension, vitamin D deficiency. Patient initially presented to [facility] on May 18 due to midsternal dull chest pain without radiation. EKG was a sinus rhythm with left ventricular hypertrophy. Troponins negative. Chest x-ray negative. CAT scan of the brain negative for acute findings. Patient had positive blood culture for E. coli. Echocardiogram showed no vegetation with EF of 55-60%. Patient was seen by molder sweep and underwent stress testing that showed abnormal areas of ischemia. Patient underwent heart catheterization that revealed triple- vessel disease to the RCA,, left circumflex and LAD. Patient was found to have E. coli bacteremia with negative urine culture. CAT scan of the abdomen was normal. Source of bacteremia was not identified. Patient has been on Ceftin. Hydralazine was added for blood pressure management. Patient is noted to be intolerant of statins and continued unsteady a. Patient is also on aspirin, Lopressor and Prinivil. She has been transferred to [facility] as a direct admission to be evaluated by cardiothoracic surgery for CABG. Patient is currently on a heparin drip and consults also in place with cardiology and Dr. Long. A repeat echocardiogram has been ordered by gilmer macias 05/25: Echocardiogram reveals EF of 55-60% with moderate concentric left ventricular hypertrophy, grade 2 diastolic dysfunction, LV moderately dilated, trace mitral regurgitation, mild to moderate tricuspid regurgitation, moderate pulmonary hypertension. Dr. JOSE A Archibald is planning for PTCA and stenting with Dr. Yin this afternoon. Patient will need staged intervention of the mid LAD and proximal RCA. Patient denies having any chest pain, shortness of breath, lightheadedness or dizziness. [id number] is at the bedside. All questions have been answered. Patient has been seen by Dr. Long with plan for IV Rocephin for now. Plan to transition to oral antibiotics at discharge. 05/26: Yesterday, patient underwent successful stenting of the mid LAD and proximal LAD. Plan for dual antiplatelet therapy. Patient has been afebrile, heart rate 62, blood pressure 156/70, pulse ox 97% on room air. Repeat creatinine 0.58, blood sugar 86 and 128. Patient has been cleared for discharge from cardiology. Dr. Long has recommended oral antibiotics at discharge. Patient will be discharged home today in stable condition. Discharge diagnoses: 1. Triple-vessel coronary artery disease. Status post PTCA and stenting of the mid and proximal LAD with Dr. Yin. 2. Hypertension. 3. Diabetes mellitus type 2. 4. Hyperlipidemia. 5. E. coli bacteremia of unclear source. Discharge plan: Return home Impression and plan of care have been directed as dictated by the signing physician. Laura Mina nurse practitioner acting as scribe for signing physician. Plan - Discharge Summary New Discharge Prescriptions: New hydrALAZINE HCL [Apresoline] 50 mg PO TID #90 tab Metoprolol Tartrate [Lopressor] 50 mg PO TID #90 tab Lisinopril [Zestril] 20 mg PO DAILY #30 tab Clopidogrel [Plavix] 75 mg PO DAILY #30 tab Cefuroxime [Ceftin] 250 mg PO BID #14 tablet Continue Aspirin EC [Ecotrin Low Dose] 81 mg PO DIRECTED amLODIPine [Norvasc] 10 mg PO DAILY Zinc Gluconate [Zinc] 50 mg PO DAILY Vitamin B Complex 1 cap PO DAILY Magnesium 200 mg PO DAILY Glucosam/Oleksandr-Msm1/C/Stewart/Bosw [Glucosamine-Chondroitin Tablet] 1 tab PO BID Garlic 1 tab PO DAILY Calcium Carbonate [Calcium] 600 mg PO DAILY Cinnamon Bark [Cinnamon] 1,000 mg PO DAILY Ezetimibe [Zetia] 10 mg PO DAILY Ascorbic Acid [Vitamin C] 2,000 mg PO DAILY Discontinued Nadolol [Corgard] 40 mg PO DIRECTED Benazepril HCl [Lotensin] 30 mg PO DAILY Benazepril HCl [Lotensin] 20 mg PO HS Nadolol 60 mg PO DIRECTED Discharge Medication List Aspirin EC [Ecotrin Low Dose] 81 mg PO DIRECTED 02/19/15 [History] amLODIPine [Norvasc] 10 mg PO DAILY 02/19/15 [History] Ascorbic Acid [Vitamin C] 2,000 mg PO DAILY 05/23/19 [History] Calcium Carbonate [Calcium] 600 mg PO DAILY 05/23/19 [History] Cinnamon Bark [Cinnamon] 1,000 mg PO DAILY 05/23/19 [History] Ezetimibe [Zetia] 10 mg PO DAILY 05/23/19 [History] Garlic 1 tab PO DAILY 05/23/19 [History] Glucosam/Oleksandr-Msm1/C/Stewart/Bosw [Glucosamine-Chondroitin Tablet] 1 tab PO BID 05/23/19 [History] Magnesium 200 mg PO DAILY 05/23/19 [History] Vitamin B Complex 1 cap PO DAILY 05/23/19 [History] Zinc Gluconate [Zinc] 50 mg PO DAILY 05/23/19 [History] Cefuroxime [Ceftin] 250 mg PO BID #14 tablet 05/26/19 [Rx] Clopidogrel [Plavix] 75 mg PO DAILY #30 tab 05/26/19 [Rx] Lisinopril [Zestril] 20 mg PO DAILY #30 tab 05/26/19 [Rx] Metoprolol Tartrate [Lopressor] 50 mg PO TID #90 tab 05/26/19 [Rx] hydrALAZINE HCL [Apresoline] 50 mg PO TID #90 tab 05/26/19 [Rx] Follow up Appointment(s)/Referral(s): Ata Gerardo NPC [REFERRING] - 06/01/19 11:00 am Joqauin Yin MD [STAFF PHYSICIAN] - 1 Week (Office will call you to make appointment. ) Patient Instructions/Handouts: *Surgery [facility] - After Heart Catheterization - A mbulatory Care Instructions Activity/Diet/Wound Care/Special Instructions: Resume metformin tomorrow Discharge Disposition: HOME SELF-CARE
[2019-05-26] MEDS ORDERED: TICAGRELOR 90 MG TAB PO SCH (21:00)
== END 2019-05-26 14:19 | disposition home or self-care (01) | DRG 247 ==
LOC: 3SCARD 17:41
PROVIDERS: ADMIT Internal Medicine; ATTEND Internal Medicine
PROC: 027035Z Dilation of Coronary Artery, One Artery with Two Drug-eluting Intraluminal Devices, Percutaneous Approach (ICD-10-PCS; principal; 2019-05-25 13:15)
DX: I25.10 Atherosclerotic heart disease of native coronary artery without angina pectoris (principal); R78.81 Bacteremia; I11.9 Hypertensive heart disease without heart failure; E78.5 Hyperlipidemia, unspecified; E11.9 Type 2 diabetes mellitus without complications; B96.20 Unspecified Escherichia coli [E. coli] as the cause of diseases classified elsewhere; Z79.82 Long term (current) use of aspirin; Z79.899 Other long term (current) drug therapy; Z82.49 Family history of ischemic heart disease and other diseases of the circulatory system; Z83.3 Family history of diabetes mellitus; E55.9 Vitamin D deficiency, unspecified; Z88.0 Allergy status to penicillin; Z88.8 Allergy status to other drugs, medicaments and biological substances; Z91.030 Bee allergy status; I08.1 Rheumatic disorders of both mitral and tricuspid valves; I27.20 Pulmonary hypertension, unspecified
CPT/HCPCS: 80048; 82565; 85025; 85610; 85652; 85730; 86140; 93306; C1874

== ENCOUNTER 2019-05-31 11:21 | Observation (INO) | payer MEDICARE ==
--- NOTE | 2019-05-31 11:58 | ED ---
General Adult HPI - General Chief complaint: Chest Pain Stated complaint: Chest pain/stents put in 05/25/19 Time Seen by Provider: 05/31/19 11:31 Source: patient, RN notes reviewed, old records reviewed Mode of arrival: wheelchair Limitations: no limitations - History of Present Illness Initial comments: 83-year-old female presenting for evaluation of fatigue and generalized weakness and upper chest tightness. Patient is 6 days status post heart catheterization with stenting of the proximal and mid LAD. She is on 2 antiplatelet therapy and has been compliant with her medication. She denies any central chest pain. She reports just up vague upper chest tightness which she's had a mild dry cough. No rhinorrhea. No sore throat. She states she was admitted and had bacteremia and was on antibiotics. She states she completed a course of oral antibiotics. Denies dyspnea. Denies fever or chills. Denies abdominal pain. Denies any pain in her groin. No focal numbness or weakness - Related Data Home Medications Medication Instructions Recorded Confirmed Aspirin EC [Ecotrin Low Dose] 81 mg PO Q48H 02/19/15 05/31/19 amLODIPine [Norvasc] 10 mg PO DAILY 02/19/15 05/31/19 Ascorbic Acid [Vitamin C] 2,000 mg PO DAILY 05/23/19 05/31/19 Calcium Carbonate [Calcium] 600 mg PO DAILY 05/23/19 05/31/19 Cinnamon Bark [Cinnamon] 1,000 mg PO DAILY 05/23/19 05/31/19 Ezetimibe [Zetia] 10 mg PO DAILY 05/23/19 05/31/19 Garlic 1 tab PO DAILY 05/23/19 05/31/19 Glucosam/Oleksandr-Msm1/C/Stewart/Bosw 1 tab PO BID 05/23/19 05/31/19 [Glucosamine-Chondroitin Tablet] Magnesium 200 mg PO DAILY 05/23/19 05/31/19 Vitamin B Complex 1 cap PO DAILY 05/23/19 05/31/19 Zinc Gluconate [Zinc] 50 mg PO DAILY 05/23/19 05/31/19 Previous Rx's Medication Instructions Recorded Cefuroxime [Ceftin] 250 mg PO BID #14 tablet 05/26/19 Clopidogrel [Plavix] 75 mg PO DAILY #30 tab 05/26/19 Lisinopril [Zestril] 20 mg PO DAILY #30 tab 05/26/19 Metoprolol Tartrate [Lopressor] 50 mg PO TID #90 tab 05/26/19 hydrALAZINE HCL [Apresoline] 50 mg PO TID #90 tab 05/26/19 Allergies Allergy/AdvReac Type Severity Reaction Status Date / Time [place] And Derivatives Allergy Unknown Verified 05/31/19 12:31 [[place]] Penicillins Allergy Unknown Verified 05/31/19 12:31 venom-honey bee Allergy Unknown Verified 05/31/19 12:31 [bee venom (honey bee)] cortisone AdvReac Flushed/Hot Verified 05/31/19 12:31 feeling Review of Systems ROS Statement: Those systems with pertinent positive or pertinent negative responses have been documented in the HPI. ROS Other: All systems not noted in ROS Statement are negative. Past Medical History Past Medical History: Diabetes Mellitus, Hypertension History of Any Multi-Drug Resistant Organisms: None Reported Past Surgical History: No Surgical Hx Reported, Heart Catheterization With Stent, Tonsillectomy Additional Past Surgical History / Comment(s): Colonoscopy with polypectomy with Dr. Pavon Past Anesthesia/Blood Transfusion Reactions: No Reported Reaction Past Psychological History: No Psychological Hx Reported Smoking Status: Never smoker Past Alcohol Use History: None Reported Past Drug Use History: None Reported - Past Family History Father Additional Family Medical History / Comment(s): Father in his 60s from a myocardial infarction with history of diabetes. Mother Additional Family Medical History / Comment(s): Mother in her 50s from a motor vehicle accident. Brother(s) Additional Family Medical History / Comment(s): Patient has one brother with heart disease. General Exam Limitations: no limitations General appearance: alert, in no apparent distress Head exam: Present: atraumatic, normocephalic Eye exam: Present: normal appearance, PERRL ENT exam: Present: normal exam, normal oropharynx, mucous membranes moist Neck exam: Present: normal inspection. Absent: tenderness, meningismus Respiratory exam: Present: normal lung sounds bilaterally. Absent: respiratory distress, wheezes, rales, rhonchi Cardiovascular Exam: Present: regular rate, normal rhythm GI/Abdominal exam: Present: soft. Absent: distended, tenderness, guarding, rebound Extremities exam: Present: normal inspection, normal capillary refill, other (Formal artery puncture site is mildly ecchymotic, no signs of infection, no pulsatile mass, no swelling.). Absent: pedal edema, calf tenderness Back exam: Present: normal inspection, full ROM. Absent: tenderness Neurological exam: Present: alert, oriented X3, CN II-XII intact. Absent: motor sensory deficit Psychiatric exam: Present: normal affect, normal mood Skin exam: Present: warm, dry, intact. Absent: cyanosis, diaphoretic Course Vital Signs 05/31/19 05/31/19 11:27 13:00 Temperature 98.2 F Pulse Rate 86 74 Respiratory 19 12 Rate Blood Pressure 139/82 148/74 O2 Sat by Pulse 99 97 Oximetry EKG Findings - EKG Comments: EKG Findings:: EKG: Normal sinus rhythm, LVH, rate of 80, MT interval 150, QRS duration 72, QTC 429, no ST segment elevation or depression. Medical Decision Making - Medical Decision Making 83-year-old female 6 days status post heart catheterization with placement of 2 stents in the LAD presenting with increased fatigue, generalized weakness, mild cough and vague upper chest tightness. EKG is sinus rhythm with no ST segment elevation. Echo reviewed, which showed a normal EF. She is currently on aspirin and Plavix and has been compliant with her medications. Chest x-rays negative for focal pneumonia. She has a mild leukocytosis at 12.9, lactic acid 2.3 which is mildly elevated as well. She is influenza negative. She has a mild elevation in total bilirubin at 1.9 with no associated abdominal pain, no vomiting. Given her recent heart cath, will keep her for 24-hour observation, repeat cardiac testing given the vague chest discomfort. I suspect this is not cardiac in nature. I will repeat her CBC and CMP in the morning. Case is discussed with the admitting physician Dr. Gandhi, and the cardiologists Dr. Diaz. - Lab Data Result diagrams: 05/31/19 11:43 05/31/19 11:43 Lab Results 05/31/19 05/31/19 05/31/19 Range/Units 11:43 11:43 11:43 WBC 12.9 H (3.8-10.6) k/uL RBC 5.18 (3.80-5.40) m/uL Hgb 15.4 (11.4-16.0) gm/dL Hct 46.3 H (34.0-46.0) % MCV 89.5 (80.0-100.0) fL MCH 29.7 (25.0-35.0) pg MCHC 33.2 (31.0-37.0) g/dL RDW 12.6 (11.5-15.5) % Plt Count 191 D (150-450) k/uL Neutrophils % 84 % Lymphocytes % 9 % Monocytes % 4 % Eosinophils % 1 % Basophils % 1 % Neutrophils # 10.8 H (1.3-7.7) k/uL Lymphocytes # 1.2 (1.0-4.8) k/uL Monocytes # 0.5 (0-1.0) k/uL Eosinophils # 0.1 (0-0.7) k/uL Basophils # 0.2 (0-0.2) k/uL PT 9.9 (9.0-12.0) sec INR 0.9 (<1.2) APTT 22.2 (22.0-30.0) sec Sodium 136 L (137-145) mmol/L Potassium 4.1 (3.5-5.1) mmol/L Chloride 100 (98-107) mmol/L Carbon Dioxide 25 (22-30) mmol/L Anion Gap 11 mmol/L BUN 17 (7-17) mg/dL Creatinine 0.57 (0.52-1.04) mg/dL Est GFR (CKD-EPI)AfAm >90 (>60 ml/min/1.73 sqM) Est GFR (CKD-EPI)NonAf 86 (>60 ml/min/1.73 sqM) Glucose 216 H (74-99) mg/dL Plasma Lactic Acid Narciso (0.7-2.0) mmol/L Calcium 10.2 (8.4-10.2) mg/dL Magnesium 2.1 (1.6-2.3) mg/dL Total Bilirubin 1.9 H (0.2-1.3) mg/dL AST 27 (14-36) U/L ALT 44 H (4-34) U/L Alkaline Phosphatase 85 (38-126) U/L Troponin I (0.000-0.034) ng/mL NT-Pro-B Natriuret Pep pg/mL Total Protein 7.5 (6.3-8.2) g/dL Albumin 4.7 (3.5-5.0) g/dL Influenza Type A RNA (Not Detectd) Influenza Type B (PCR) (Not Detectd) 05/31/19 05/31/19 05/31/19 Range/Units 11:43 11:43 11:43 WBC (3.8-10.6) k/uL RBC (3.80-5.40) m/uL Hgb (11.4-16.0) gm/dL Hct (34.0-46.0) % MCV (80.0-100.0) fL MCH (25.0-35.0) pg MCHC (31.0-37.0) g/dL RDW (11.5-15.5) % Plt Count (150-450) k/uL Neutrophils % % Lymphocytes % % Monocytes % % Eosinophils % % Basophils % % Neutrophils # (1.3-7.7) k/uL Lymphocytes # (1.0-4.8) k/uL Monocytes # (0-1.0) k/uL Eosinophils # (0-0.7) k/uL Basophils # (0-0.2) k/uL PT (9.0-12.0) sec INR (<1.2) APTT (22.0-30.0) sec Sodium (137-145) mmol/L Potassium (3.5-5.1) mmol/L Chloride (98-107) mmol/L Carbon Dioxide (22-30) mmol/L Anion Gap mmol/L BUN (7-17) mg/dL Creatinine (0.52-1.04) mg/dL Est GFR (CKD-EPI)AfAm (>60 ml/min/1.73 sqM) Est GFR (CKD-EPI)NonAf (>60 ml/min/1.73 sqM) Glucose (74-99) mg/dL Plasma Lactic Acid Narciso 2.3 H* (0.7-2.0) mmol/L Calcium (8.4-10.2) mg/dL Magnesium (1.6-2.3) mg/dL Total Bilirubin (0.2-1.3) mg/dL AST (14-36) U/L ALT (4-34) U/L Alkaline Phosphatase (38-126) U/L Troponin I <0.012 (0.000-0.034) ng/mL NT-Pro-B Natriuret Pep 87 pg/mL Total Protein (6.3-8.2) g/dL Albumin (3.5-5.0) g/dL Influenza Type A RNA (Not Detectd) Influenza Type B (PCR) (Not Detectd) 05/31/19 Range/Units 12:07 WBC (3.8-10.6) k/uL RBC (3.80-5.40) m/uL Hgb (11.4-16.0) gm/dL Hct (34.0-46.0) % MCV (80.0-100.0) fL MCH (25.0-35.0) pg MCHC (31.0-37.0) g/dL RDW (11.5-15.5) % Plt Count (150-450) k/uL Neutrophils % % Lymphocytes % % Monocytes % % Eosinophils % % Basophils % % Neutrophils # (1.3-7.7) k/uL Lymphocytes # (1.0-4.8) k/uL Monocytes # (0-1.0) k/uL Eosinophils # (0-0.7) k/uL Basophils # (0-0.2) k/uL PT (9.0-12.0) sec INR (<1.2) APTT (22.0-30.0) sec Sodium (137-145) mmol/L Potassium (3.5-5.1) mmol/L Chloride (98-107) mmol/L Carbon Dioxide (22-30) mmol/L Anion Gap mmol/L BUN (7-17) mg/dL Creatinine (0.52-1.04) mg/dL Est GFR (CKD-EPI)AfAm (>60 ml/min/1.73 sqM) Est GFR (CKD-EPI)NonAf (>60 ml/min/1.73 sqM) Glucose (74-99) mg/dL Plasma Lactic Acid Narciso (0.7-2.0) mmol/L Calcium (8.4-10.2) mg/dL Magnesium (1.6-2.3) mg/dL Total Bilirubin (0.2-1.3) mg/dL AST (14-36) U/L ALT (4-34) U/L Alkaline Phosphatase (38-126) U/L Troponin I (0.000-0.034) ng/mL NT-Pro-B Natriuret Pep pg/mL Total Protein (6.3-8.2) g/dL Albumin (3.5-5.0) g/dL Influenza Type A RNA Not Detected (Not Detectd) Influenza Type B (PCR) Not Detected (Not Detectd) Disposition Clinical Impression: CAD (coronary artery disease), Chest pain Disposition: ADMITTED IP TO THIS [facility] Condition: Stable Is patient prescribed a controlled substance at d/c from ED?: No Referrals: Lev Aguilar MD [Primary Care Provider] - 1-2 days Decision to Admit Reason: Admit from EC Decision Date: 05/31/19 Decision Time: 13:25
[2019-05-31 12:01] LABS: Basophils # (A) 0.2 k/uL (0-0.2); Basophils % (A) 1 %; Eosinophils # (A) 0.1 k/uL (0-0.7); Eosinophils % (A) 1 %; HCT 46.3 % (34.0-46.0); HGB 15.4 gm/dL (11.4-16.0); Lymphocytes # (A) 1.2 k/uL (1.0-4.8); Lymphocytes % (A) 9 %; MCH 29.7 pg (25.0-35.0); MCHC 33.2 g/dL (31.0-37.0); MCV 89.5 fL (80.0-100.0); Mean Platelet Volume 9.7; Monocytes # (A) 0.5 k/uL (0-1.0); Monocytes % (A) 4 %; Neutrophils # (A) 10.8 k/uL (1.3-7.7); Neutrophils % (A) 84 %; RBC 5.18 m/uL (3.80-5.40); RDW 12.6 % (11.5-15.5); WBC 12.9 k/uL (3.8-10.6)
[2019-05-31 12:10] LABS: ALT 44 U/L (4-34); AST 27 U/L (14-36); African American GFR (CKD) >90 (>60 ml/min/1.73 sqM); Albumin 4.7 g/dL (3.5-5.0); Alkaline Phosphatase 85 U/L (38-126); Anion Gap 11 mmol/L; Blood Urea Nitrogen 17 mg/dL (7-17); Calcium 10.2 mg/dL (8.4-10.2); Carbon Dioxide 25 mmol/L (22-30); Chloride 100 mmol/L (98-107); Glucose 216 mg/dL (74-99); Magnesium 2.1 mg/dL (1.6-2.3); Non-African American GFR(CKD) 86 (>60 ml/min/1.73 sqM); Potassium 4.1 mmol/L (3.5-5.1); Sodium 136 mmol/L (137-145); Total Bilirubin 1.9 mg/dL (0.2-1.3); Total Protein 7.5 g/dL (6.3-8.2)
[2019-05-31 12:11] LABS: Platelet Count 191 k/uL (150-450)
[2019-05-31] MEDS ORDERED: SODIUM CHLORIDE 0.9% 500 ML 500 ML IV STA (12:23)
[2019-05-31 12:24] LABS: INR 0.9 (<1.2); Partial Thromboplastin Time 22.2 sec (22.0-30.0); Prothrombin Time 9.9 sec (9.0-12.0)
--- NOTE | 2019-05-31 12:59 | XR ---
EXAMINATION TYPE: XR chest 2V DATE OF EXAM: 05/31/2019 COMPARISON: Prior chest x-ray 08/15/2011 HISTORY: Chest pain TECHNIQUE: Frontal and lateral views of the chest are obtained. FINDINGS: There is no focal air space opacity, pleural effusion, or pneumothorax seen. The cardiac silhouette size is within normal limits. The osseous structures are intact. There are overlying car diac leads. Patient is rotated toward the left. Arthropathy noted in the right shoulder. Aorta is den se. Thoracic spondylosis is present. IMPRESSION: No acute cardiopulmonary process.
[2019-05-31] MEDS ORDERED: NALOXONE 0.4 MG/ML 1 ML VIAL IV PRN (13:11)
[2019-05-31] MEDS ORDERED: ACETAMINOPHEN TAB 325 MG TAB PO PRN (13:11)
[2019-05-31] MEDS: hydrALAZINE HCL 50 MG TAB PO SCH ×2 (19:14→23:33)
[2019-05-31] MEDS: METOPROLOL TARTRATE 50 MG TAB PO SCH ×2 (19:14→23:33)
[2019-05-31 19:41] VITALS: RESP 18
[2019-05-31] MEDS: SODIUM CHLORIDE 0.9% 1,000 ML IV SCH (19:49)
[2019-06-01] MEDS: SODIUM CHLORIDE 0.9% 1,000 ML IV SCH ×2 (03:04→16:42)
[2019-06-01 05:26] LABS: Basophils % (A) 0 %; Eosinophils # (A) 0.1 k/uL (0-0.7); Eosinophils % (A) 2 %; HCT 38.3 % (34.0-46.0); HGB 13.1 gm/dL (11.4-16.0); Lymphocytes # (A) 1.5 k/uL (1.0-4.8); Lymphocytes % (A) 17 %; MCH 30.8 pg (25.0-35.0); MCHC 34.1 g/dL (31.0-37.0); MCV 90.3 fL (80.0-100.0); Mean Platelet Volume 9.6; Monocytes # (A) 0.5 k/uL (0-1.0); Monocytes % (A) 5 %; Neutrophils # (A) 6.4 k/uL (1.3-7.7); Neutrophils % (A) 74 %; Platelet Count 154 k/uL (150-450); RBC 4.24 m/uL (3.80-5.40); RDW 12.7 % (11.5-15.5); WBC 8.6 k/uL (3.8-10.6)
[2019-06-01 05:40] LABS: ALT 35 U/L (4-34); AST 26 U/L (14-36); African American GFR (CKD) >90 (>60 ml/min/1.73 sqM); Albumin 3.7 g/dL (3.5-5.0); Alkaline Phosphatase 73 U/L (38-126); Anion Gap 6 mmol/L; Blood Urea Nitrogen 17 mg/dL (7-17); Calcium 9.5 mg/dL (8.4-10.2); Carbon Dioxide 25 mmol/L (22-30); Chloride 106 mmol/L (98-107); Glucose 179 mg/dL (74-99); Magnesium 2.1 mg/dL (1.6-2.3); Non-African American GFR(CKD) 87 (>60 ml/min/1.73 sqM); Potassium 4.1 mmol/L (3.5-5.1); Sodium 137 mmol/L (137-145); Total Bilirubin 1.3 mg/dL (0.2-1.3); Total Protein 6.2 g/dL (6.3-8.2)
[2019-06-01] MEDS ORDERED: LISINOPRIL 20 MG TAB PO SCH (09:00)
[2019-06-01] MEDS ORDERED: MAGNESIUM OXIDE 400 MG TAB PO SCH (09:00)
[2019-06-01] MEDS ORDERED: amLODIPine 10 MG TAB PO SCH (09:00)
[2019-06-01] MEDS ORDERED: ASPIRIN 81 MG PO SCH (09:00)
[2019-06-01] MEDS ORDERED: CLOPIDOGREL 75 MG TAB PO SCH (09:00)
[2019-06-01] MEDS: hydrALAZINE HCL 50 MG TAB PO SCH ×2 (09:32→16:50)
[2019-06-01] MEDS: METOPROLOL TARTRATE 50 MG TAB PO SCH ×2 (09:33→16:50)
[2019-06-01] MEDS ORDERED: CEFDINIR 300 MG CAP PO SCH (11:15)
--- NOTE | 2019-06-01 11:15 | P.HPIM ---
History of Present Illness H&P Date: 06/01/19 Chief Complaint: CP This is an 83-year-old female patient of Ata Gerardo NP, with past medical history of diabetes mellitus type 2 diet controlled, hypertension, vitamin D deficiency. Patient initially presented to [facility] on May 18 due to midsternal dull chest pain without radiation. EKG was a sinus rhythm with left ventricular hypertrophy. Troponins negative. Chest x- ray negative. CAT scan of the brain negative for acute findings. Patient had positive blood culture for E. coli. Echocardiogram showed no vegetation with EF of 55-60%. Patient was seen by lumber carrier and underwent stress testing that showed abnormal areas of ischemia. Patient underwent heart catheterization that revealed triple-vessel disease to the RCA, left circumflex and LAD. Patient was found to have E. coli bacteremia with negative urine culture. CAT scan of the abdomen was normal. Source of bacteremia was not identified and patient was seen and followed by Dr. Long. She was transferred to [facility] as a direct admission to be evaluated by cardiothoracic surgery for CABG and declined open-heart surgery. Repeat echocardiogram revealed EF of 55- 60% with moderate concentric left ventricular hypertrophy, grade 2 diastolic d ysfunction, LV moderately dilated, trace mitral regurgitation, mild to moderate tricuspid regurgitation, moderate pulmonary hypertension. Patient underwent successful stenting of the mid LAD and proximal LAD with plan for dual antiplatelet therapy. Patient was discharged home on May 26 and Ceftin was recommended by Dr. Long. Patient states that she has been doing fine at home until yesterday she was feeling post nasal drainage and some discomfort and the low throat area. She denied having any chest pain, no pressure, no sensation in her arms. She states that her family was panicky and it was decided she will come in to the hospital for evaluation. A chest x-ray showed no acute card iopulmonary process. The CBC 12.9 with repeat at 8.6, sodium 136, blood sugar 216. Initial lactic acid was 2.3 and repeat 1.4, total bilirubin 1. 9 repeat 1.3, ALT 44 with repeat at 35, AST and alkaline phosphatase normal, troponin I 3, influenza testing negative. Patient was placed on the observation unit and cardiology has evaluated the patient ordered ultrasound of the abdomen and consult with Dr. Long. Patient was informed today that Peewee Gerardo passed yesterday. She had a scheduled appointment with him today as follow up from last hospitalization. Patient states that her insurance will allow her to choose a PCP and she would like to follow-up with Dr. Trinidad as she knows him from when she was a patient of Dr. Orona'lolita. Review of Systems Constitutional: Denies anorexia, Denies chills, Denies fatigue, Denies fever, Denies lethargy, Denies malaise, Denies poor appetite, Denies weakness, Denies weight loss Eyes: denies blurred vision, denies pain Ears, nose, mouth and throat: Reports post-nasal drip, Denies dental pain, Denies dysphagia, Denies epistaxis, Denies headache, Denies hoarseness, Denies mouth pain, Denies nasal congestion, Denies nasal discharge, Denies swelling in mouth, Denies swelling in throat, Denies sore throat, Denies vertigo Cardiovascular: Denies chest pain, Denies decreased exercise tolerance, Denies dyspnea on exertion, Denies leg edema, Denies lightheadedness, Denies shortness of breath, Denies syncope Respiratory: Denies cough, Denies cough with sputum, Denies dyspnea, Denies excessive sputum, Denies hemoptysis, Denies home oxygen, Denies respiratory infections, Denies sleep apnea Gastrointestinal: Denies abdominal pain, Denies diarrhea, Denies loss of appetite, Denies nausea, Denies vomiting Genitourinary: Denies dysuria, Denies hematuria, Denies urgency, Denies urinary frequency Musculoskeletal: Denies frequent falls, Denies gait dysfunction, Denies muscle weakness, Denies myalgias Integumentary: Denies pruritus, Denies rash, Denies wounds Neurological: Denies change in mentation, Denies change in speech, Denies numbness, Denies weakness Psychiatric: Denies anxiety, Denies depression Endocrine: Denies fatigue, Denies weight change Past Medical History Past Medical History: Coronary Artery Disease (CAD), Diabetes Mellitus, Hypertension History of Any Multi-Drug Resistant Organisms: None Reported Past Surgical History: No Surgical Hx Reported, Heart Catheterization With Stent, Tonsillectomy Additional Past Surgical History / Comment(s): Colonoscopy with polypectomy with Dr. Pavon Past Anesthesia/Blood Transfusion Reactions: No Reported Reaction Date of Last Stent Placement:: 05/25/2019 Past Psychological History: No Psychological Hx Reported Smoking Status: Never smoker Past Alcohol Use History: None Reported Additional Past Alcohol Use History / Comment(s): Patient is a lifelong nonsmoker, no alcohol use, no illicit drug use, patient does not have home oxygen, no nebulizer, no CPAP. Past Drug Use History: None Reported - Past Family History Father Additional Family Medical History / Comment(s): Father in his 60s from a myocardial infarction with history of diabetes. Mother Additional Family Medical History / Comment(s): Mother in her 50s from a motor vehicle accident. Brother(s) Additional Family Medical History / Comment(s): Patient has one brother with heart disease. Medications and Allergies Home Medications Medication Instructions Recorded Confirmed Type Aspirin EC [Ecotrin Low Dose] 81 mg PO Q48H 02/19/15 05/31/19 History amLODIPine [Norvasc] 10 mg PO DAILY 02/19/15 05/31/19 History Ascorbic Acid [Vitamin C] 2,000 mg PO DAILY 05/23/19 05/31/19 History Calcium Carbonate [Calcium] 600 mg PO DAILY 05/23/19 05/31/19 History Cinnamon Bark [Cinnamon] 1,000 mg PO DAILY 05/23/19 05/31/19 History Ezetimibe [Zetia] 10 mg PO DAILY 05/23/19 05/31/19 History Garlic 1 tab PO DAILY 05/23/19 05/31/19 History Glucosam/[place]-Msm1/C/[place]/Bosw 1 tab PO BID 05/23/19 05/31/19 History [Glucosamine-Chondroitin Tablet] Magnesium 200 mg PO DAILY 05/23/19 05/31/19 History Vitamin B Complex 1 cap PO DAILY 05/23/19 05/31/19 History Zinc Gluconate [Zinc] 50 mg PO DAILY 05/23/19 05/31/19 History Cefuroxime [Ceftin] 250 mg PO BID #14 tablet 05/26/19 05/31/19 Rx Clopidogrel [Plavix] 75 mg PO DAILY #30 tab 05/26/19 05/31/19 Rx Lisinopril [Zestril] 20 mg PO DAILY #30 tab 05/26/19 05/31/19 Rx Metoprolol Tartrate [Lopressor] 50 mg PO TID #90 tab 05/26/19 05/31/19 Rx hydrALAZINE HCL [Apresoline] 50 mg PO TID #90 tab 05/26/19 05/31/19 Rx Allergies Allergy/AdvReac Type Severity Reaction Status Date / Time [place] And Derivatives Allergy Unknown Verified 05/31/19 12:31 [[place]] Penicillins Allergy Unknown Verified 05/31/19 12:31 venom-honey bee Allergy Unknown Verified 05/31/19 12:31 [bee venom (honey bee)] cortisone AdvReac Flushed/Hot Verified 05/31/19 12:31 feeling Physical Exam Vitals: Vital Signs Temp Pulse Pulse Resp BP BP BP 06/01/19 06:59 98.0 F 82 18 172/78 06/01/19 04:00 98.1 F 60 18 145/69 06/01/19 00:00 98.0 F 76 18 145/68 05/31/19 23:44 68 18 05/31/19 20:47 68 18 05/31/19 19:45 97.9 F 68 18 130/61 05/31/19 19:40 97.9 F 72 18 135/65 05/31/19 13:00 74 12 148/74 05/31/19 11:27 98.2 F 86 19 139/82 Pulse Ox 06/01/19 06:59 96 06/01/19 04:00 96 06/01/19 00:00 95 05/31/19 23:44 05/31/19 20:47 05/31/19 19:45 97 05/31/19 19:40 97 05/31/19 13:00 97 05/31/19 11:27 99 Intake and Output 05/31/19 06/01/19 06/01/19 22:59 06:59 14:59 Other: Voiding Method Toilet # Voids 2 1 Weight 58.513 kg Gen: This is an 83-year-old female. Patient is in bed and appears to be in no acute distress. HEENT: Head is atraumatic, normocephalic. Pupils equal, round. Sclerae is anicteric. NECK: Supple. No JVD. No lymphadenopathy. No thyromegaly. LUNGS: Clear to auscultation. No wheezes or rhonchi. No intercostal retractions. HEART: Regular rate and rhythm. Systolic murmur. ABDOMEN: Soft. Bowel sounds are present. No masses. No tenderness. No right upper quadrant, epigastric tenderness. EXTREMITIES: No pedal edema. No calf tenderness. NEUROLOGICAL: Patient is awake, alert and oriented x3. Cranial nerves 2 through 12 are grossly intact. Results CBC & Chem 7: 06/01/19 04:54 06/01/19 04:54 Labs: Abnormal Lab Results - Last 24 Hours (Table) 05/31/19 05/31/19 05/31/19 Range/Units 11:43 11:43 11:43 WBC 12.9 H (3.8-10.6) k/uL Hct 46.3 H (34.0-46.0) % Neutrophils # 10.8 H (1.3-7.7) k/uL Sodium 136 L (137-145) mmol/L Glucose 216 H (74-99) mg/dL Plasma Lactic Acid Narciso 2.3 H* (0.7-2.0) mmol/L Total Bilirubin 1.9 H (0.2-1.3) mg/dL ALT 44 H (4-34) U/L Total Protein (6.3-8.2) g/dL 06/01/19 Range/Units 04:54 WBC (3.8-10.6) k/uL Hct (34.0-46.0) % Neutrophils # (1.3-7.7) k/uL Sodium (137-145) mmol/L Glucose 179 H (74-99) mg/dL Plasma Lactic Acid Narciso (0.7-2.0) mmol/L Total Bilirubin (0.2-1.3) mg/dL ALT 35 H (4-34) U/L Total Protein 6.2 L (6.3-8.2) g/dL Thrombosis Risk Factor Assmnt - DVT/VTE Prophylaxis DVT/VTE Prophylaxis: Mechanical Prophylaxis ordered - Choose All That Apply Any of the Below Risk Factors Present?: Yes Each Factor Represents 1 point: Acute GA Other Risk Factors: Yes Each Risk Factor Represents 3 Points: Age 75 years or older Other congenital or acquired thrombophilia - If yes, enter type in comment: No Thrombosis Risk Factor Assessment Total Risk Factor Score: 4 Thrombosis Risk Factor Assessment Level: Moderate Risk Assessment and Plan Plan: 1. Triple-vessel coronary artery disease. Continue aspirin 81 mg daily, Lopressor 50 mg 3 times daily. 2. Hypertension. Continue Norvasc 10 mg daily, hydralazine 50 mg 3 times daily, lisinopril 20 mg daily. 3. Diabetes mellitus type 2, diet controlled. Continue NovoLog scale. Check hemoglobin A1c 4. Hyperlipidemia. Continue Zetia 5. E. coli bacteremia of unclear source. Consult with Dr. Long. Patient to continue course of Ceftin. 6. Sinus drainage with seasonal ALLERGIES. 7. GI prophylaxis. Pepcid. 8. DVT prophylaxis. Early ambulation. Discharge plan: Return home Impression and plan of care have been directed as dictated by the signing physician. Laura Mina nurse practitioner acting as scribe for signing physician.
--- NOTE | 2019-06-01 11:25 | P.CONS ---
<Laura Mina - Last Filed: 06/01/19 11:20> History of Present Illness - Reason for Consult Consult date: 06/01/19 Leukocytosis, lactic acidosis - History of Present Illness This is an 83-year-old female patient of Ata Gerardo NP, with past medical history of diabetes mellitus type 2 diet controlled, hypertension, vitamin D deficiency. Patient initially presented to [facility] on May 18 due to midsternal dull chest pain without radiation. EKG was a sinus rhythm with left ventricular hypertrophy. Troponins negative. Chest x-ra y negative. CAT scan of the brain negative for acute findings. Patient had positive blood culture for E. coli. Echocardiogram showed no vegetation with EF of 55-60%. 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 Patient underwent heart catheterization that revealed triple-vessel disease to the RCA, left circumflex and LAD. Patient was found to have E. coli bacteremia with negative urine culture. CAT scan of the abdomen was normal. Source of bacteremia was not identified and patient was seen and followed by ID. She was transferred to [facility] as a direct admission to be evaluated by cardiothoracic surgery for CABG and declined open-heart surgery. Repeat echocardiogram revealed EF of 55-60% with moderate concentric left ventricular hypertrophy, grade 2 diastolic dysfunction, LV moderately dilated, trace mitral regurgitation, mild to moderate tricuspid regurgitation, moderate pulmonary hypertension. Patient underwent successful stenting of the mid LAD and proximal LAD with plan for dual antiplatelet ther apy. Patient was discharged home on May 26 and Ceftin was recommended by ID. Patient states that she has been doing fine at home until yesterday she was feeling post nasal drainage and some discomfort and the low throat area. She denied having any chest pain, no pressure, no sensation in her arms. She states that her family was panicky and it was decided she will come in to the hospital for evaluation. A chest x-ray showed no acute cardiopulmonary process. The CBC 12.9 with repeat at 8.6, sodium 136, blood sugar 216. Initial lactic acid was 2.3 and repeat 1.4, total bilirubin 1. 9 repeat 1.3, ALT 44 with repeat at 35, AST and alkaline phosphatase normal, troponin I 3, influenza testing negative. Patient was placed on the observation unit. Gallbladder ultrasound is pending. Review of Systems Constitutional: Denies anorexia, Denies chills, Denies fatigue, Denies fever, Denies lethargy, Denies malaise, Denies poor appetite, Denies weakness, Denies weight loss Eyes: denies blurred vision, denies pain Ears, nose, mouth and throat: Reports post-nasal drip, Denies dental pain, Denies dysphagia, Denies epistaxis, Denies headache, Denies hoarseness, Denies mouth pain, Denies nasal congestion, Denies nasal discharge, Denies swelling in mouth, Denies swelling in throat, Denies sore throat, Denies vertigo Cardiovascular: Denies chest pain, Denies decreased exercise tolerance, Denies dyspnea on exertion, Denies leg edema, Denies lightheadedness, Denies shortness of breath, Denies syncope Respiratory: Denies cough, Denies cough with sputum, Denies dyspnea, Denies excessive sputum, Denies hemoptysis, Denies home oxygen, Denies respiratory infections, Denies sleep apnea Gastrointestinal: Denies abdominal pain, Denies diarrhea, Denies loss of appetite, Denies nausea, Denies vomiting Genitourinary: Denies dysuria, Denies hematuria, Denies urgency, Denies urinary frequency Musculoskeletal: Denies frequent falls, Denies gait dysfunction, Denies muscle weakness, Denies myalgias Integumentary: Denies pruritus, Denies rash, Denies wounds Neurological: Denies change in mentation, Denies change in speech, Denies numbness, Denies weakness Psychiatric: Denies anxiety, Denies depression Endocrine: Denies fatigue, Denies weight change Past Medical History Past Medical History: Coronary Artery Disease (CAD), Diabetes Mellitus, Hypertension History of Any Multi-Drug Resistant Organisms: None Reported Past Surgical History: No Surgical Hx Reported, Heart Catheterization With Stent, Tonsillectomy Additional Past Surgical History / Comment(s): Colonoscopy with polypectomy with Dr. Pavon Past Anesthesia/Blood Transfusion Reactions: No Reported Reaction Date of Last Stent Placement:: 05/25/2019 Past Psychological History: No Psychological Hx Reported Smoking Status: Never smoker Past Alcohol Use History: None Reported Additional Past Alcohol Use History / Comment(s): Patient is a lifelong nonsmoker, no alcohol use, no illicit drug use, patient does not have home oxygen, no nebulizer, no CPAP. Past Drug Use History: None Reported - Past Family History Father Additional Family Medical History / Comment(s): Father in his 60s from a myocardial infarction with history of diabetes. Mother Additional Family Medical History / Comment(s): Mother in her 50s from a motor vehicle accident. Brother(s) Additional Family Medical History / Comment(s): Patient has one brother with heart disease. Medications and Allergies Home Medications Medication Instructions Recorded Confirmed Type Aspirin EC [Ecotrin Low Dose] 81 mg PO Q48H 02/19/15 05/31/19 History amLODIPine [Norvasc] 10 mg PO DAILY 02/19/15 05/31/19 History Ascorbic Acid [Vitamin C] 2,000 mg PO DAILY 05/23/19 05/31/19 History Calcium Carbonate [Calcium] 600 mg PO DAILY 05/23/19 05/31/19 History Cinnamon Bark [Cinnamon] 1,000 mg PO DAILY 05/23/19 05/31/19 History Ezetimibe [Zetia] 10 mg PO DAILY 05/23/19 05/31/19 History Garlic 1 tab PO DAILY 05/23/19 05/31/19 History Glucosam/Oleksandr-Msm1/C/Stewart/Bosw 1 tab PO BID 05/23/19 05/31/19 History [Glucosamine-Chondroitin Tablet] Magnesium 200 mg PO DAILY 05/23/19 05/31/19 History Vitamin B Complex 1 cap PO DAILY 05/23/19 05/31/19 History Zinc Gluconate [Zinc] 50 mg PO DAILY 05/23/19 05/31/19 History Cefuroxime [Ceftin] 250 mg PO BID #14 tablet 05/26/19 05/31/19 Rx Clopidogrel [Plavix] 75 mg PO DAILY #30 tab 05/26/19 05/31/19 Rx Lisinopril [Zestril] 20 mg PO DAILY #30 tab 05/26/19 05/31/19 Rx Metoprolol Tartrate [Lopressor] 50 mg PO TID #90 tab 05/26/19 05/31/19 Rx hydrALAZINE HCL [Apresoline] 50 mg PO TID #90 tab 05/26/19 05/31/19 Rx Allergies Allergy/AdvReac Type Severity Reaction Status Date / Time [place] And Derivatives Allergy Unknown Verified 05/31/19 12:31 [[place]] Penicillins Allergy Unknown Verified 05/31/19 12:31 venom-honey bee Allergy Unknown Verified 05/31/19 12:31 [bee venom (honey bee)] cortisone AdvReac Flushed/Hot Verified 05/31/19 12:31 feeling Physical Exam Vitals: Vital Signs Temp Pulse Pulse Resp BP BP BP 06/01/19 06:59 98.0 F 82 18 172/78 06/01/19 04:00 98.1 F 60 18 145/69 06/01/19 00:00 98.0 F 76 18 145/68 05/31/19 23:44 68 18 05/31/19 20:47 68 18 05/31/19 19:45 97.9 F 68 18 130/61 05/31/19 19:40 97.9 F 72 18 135/65 05/31/19 13:00 74 12 148/74 05/31/19 11:27 98.2 F 86 19 139/82 Pulse Ox 06/01/19 06:59 96 06/01/19 04:00 96 06/01/19 00:00 95 05/31/19 23:44 05/31/19 20:47 05/31/19 19:45 97 05/31/19 19:40 97 05/31/19 13:00 97 05/31/19 11:27 99 Intake and Output 05/31/19 06/01/19 06/01/19 22:59 06:59 14:59 Other: Voiding Method Toilet # Voids 2 1 Weight 58.513 kg Gen: This is an 83-year-old female. Patient is in bed and appears to be in no acute distress. HEENT: Head is atraumatic, normocephalic. Pupils equal, round. Sclerae is anicteric. NECK: Supple. No JVD. No lymphadenopathy. No thyromegaly. LUNGS: Clear to auscultation. No wheezes or rhonchi. No intercostal retractions. HEART: Regular rate and rhythm. Systolic murmur. ABDOMEN: Soft. Bowel sounds are present. No masses. No tenderness. No right upper quadrant, epigastric tenderness. EXTREMITIES: No pedal edema. No calf tenderness. NEUROLOGICAL: Patient is awake, alert and oriented x3. Cranial nerves 2 through 12 are grossly intact. Results CBC & Chem 7: 06/01/19 04:54 01/22/20 04:54 Labs: Abnormal Lab Results - Last 24 Hours (Table) 05/31/19 05/31/19 05/31/19 Range/Units 11:43 11:43 11:43 WBC 12.9 H (3.8-10.6) k/uL Hct 46.3 H (34.0-46.0) % Neutrophils # 10.8 H (1.3-7.7) k/uL Sodium 136 L (137-145) mmol/L Glucose 216 H (74-99) mg/dL Plasma Lactic Acid Narciso 2.3 H* (0.7-2.0) mmol/L Total Bilirubin 1.9 H (0.2-1.3) mg/dL ALT 44 H (4-34) U/L Total Protein (6.3-8.2) g/dL 06/01/19 Range/Units 04:54 WBC (3.8-10.6) k/uL Hct (34.0-46.0) % Neutrophils # (1.3-7.7) k/uL Sodium (137-145) mmol/L Glucose 179 H (74-99) mg/dL Plasma Lactic Acid Narciso (0.7-2.0) mmol/L Total Bilirubin (0.2-1.3) mg/dL ALT 35 H (4-34) U/L Total Protein 6.2 L (6.3-8.2) g/dL Assessment and Plan Plan: This is a patient that was initially seen at [facility] at the time she had presented with chest pain and found to have triple-vessel disease. Patient was also found to have E. coli bacteremia and was treated inpatient with ceftriaxone. Source of the bacteremia was not identified despite full workup and patient did have resolution of the bacteremia improvement of her symptoms. Patient was discharged home on May 26 and continued on a 7 day course of Ceftin. Patient now presents with complaints of postnasal drainage and discomfort in her throat which has resolved. She presented with mild lactic acidosis and leukocytosis possibly related to dehydration. Patient has been continued on Ceftin. She is anticipated to be discharged home later today. Continue supportive care. Further recommendations as patient progresses. The above dictated assessment and findings were discussed with Dr. Long. The impression and plan of care have been directed as dictated. Laura Mina nurse practitioner acting as scribe for Dr. Long. <Haven Long - Last Filed: 06/04/19 17:15> Results CBC & Chem 7: 06/01/19 04:54 06/01/19 04:54 Labs: Microbiology - Last 24 Hours (Table) 05/31/19 11:48 Blood Culture - Preliminary Blood No Growth after 96 hours Assessment and Plan Plan: Patient was seen and examined, nurse practitioner note was reviewed and agreed with the findings A/P: Patient with recent E. coli bacteremia secondary to urinary source follow- up blood culture was negative admitted to the hospital with post nasal drainage and discomfort in her throat patient's symptom has resolved patient is currently afebrile , mild lactic acidosis and excessive doses possibly related to dehydration resolved blood cultures have been obtained which are negative so far patient has completed her antibiotic therapy recommended no further antibiotic on discharge, also recommend obtaining a set of blood cultures week after completing antibiotic to make sure no evidence of any recurrence of her bacteremia this was explained to the patient and will follow-up in the office in one week Time with Patient: Greater than 30
[2019-06-01 11:46] VITALS: TEMP 97.8
[2019-06-01] MEDS: INSULIN ASPART (NovoLOG) 100 UNIT/ML VIAL SQ SCH ×3 (11:54→16:42)
--- NOTE | 2019-06-01 13:45 | P.CRDCN ---
History of Present Illness History of present illness: HISTORY OF PRESENTING ILLNESS This is a pleasant 83-year-old female past medical history significant for coronary artery disease s/p recent stent placement 05/25/[address] Yin, hypertension, dyslipidemia and diabetes mellitus. Cardiac catheterization performed at [facility] revealed triple vessel CAD. She was seen and evaluated by CT surgery and recommended bypass grafting. The patient opted for PCI and underwent successful stent placement to the proximal and mid LAD. Since undergoing stent placement she has been quite stable at home. She has been performing her activities at home without difficulty. She even started her walking regimen at the mall on Thursday. She developed a full feeling in her throat yesterday. This alarmed her family prompting her to come in for evaluation regarding her heart. She does say she has a chronic dry cough and nasal drainage. She took a ricolla cough drop and her throat discomfort improved. Her previous admission she was also treated for E. coli bacteremia and started on antibiotics. Her last day of oral antibiotics is today. DIAGNOSTICS EKG reveals sinus mechanism with no acute ST or T-wave abnormalities. Chest xray negative for an acute cardiopulmonary process. Laboratory reviewed, WBC on admission 12.9 and repeat today 8.6, hemoglobin 13.1, platelets 154, lactic acid on admission 2. 3 repeat after hydration 1.4, sodium 137, potassium 4.1, creatinine 0.55, cardiac enzymes negative 3 and influenza screening negative. Current cardiac medications include aspirin 81 mg every other day, hydralazine 50 mg 3 times a day, amlodipine 10 mg daily, Lopressor 50 mg 3 times a day, lisinopril 20 mg daily, that he 10 mg daily, Plavix 75 mg daily. Echocardiogram obtained May 24 reveals preserved LV systolic function with ejection fraction 55-60%, grade 2 diastolic dysfunction, moderately dilated left atrium, mild to moderate TR and moderate pulmonary hypertension with an RVSP of 55 mmHg. REVIEW OF SYSTEMS At the time of my exam: CONSTITUTIONAL: Denies fever or chills. CARDIOVASCULAR: Denies chest pain, shortness of breath, orthopnea, PND or palpitations. RESPIRATORY: Denies cough. GASTROINTESTINAL: Denies abdominal pain, diarrhea, constipation, nausea or vomiting. MUSCULOSKELETAL: Denies myalgias. NEUROLOGIC: Denies numbness, tingling or weakness. ENDOCRINE: Denies fatigue, weight change, polydipsia or polyurina. GENITOURINARY: Denies burning, hematuria or urgency with micturation. HEMATOLOGIC: Denies history of anemia or bleeding. PHYSICAL EXAMINATION Blood pressure 114/62 heart rate 67 afebrile and maintaining oxygen saturation on room air. CONSTITUTIONAL: No apparent distress. HEENT: Head is normocephalic. Pupils are equal, round. Sclerae anicteric. Mucous membranes of the mouth are moist. No JVD. No carotid bruit. CHEST EXAMINATION: Lungs are clear to auscultation. No chest wall tenderness is noted on palpation or with deep breathing. HEART EXAMINATION: Regular rate and rhythm. S1, S2 heard. Systolic ejection murmur at the left sternal border, no gallops or rub. ABDOMEN: Soft, nontender. Positive bowel sounds. EXTREMITIES: 2+ peripheral pulses, no lower extremity edema and no calf tenderness. NEUROLOGIC EXAMINATION: Patient is awake, alert and oriented x3. ASSESSMENT Throat pain, atypical for angina. An acute coronary event has been ruled out. History of coronary artery disease status post recent stent placement to the proximal and mid LAD maintained on dual antiplatelet therapy Hypertension Dyslipidemia Diabetes mellitus Recent diagnosis of E. coli bacteremia maintained on oral antibiotics Leukocytosis Lactic acidosis PLAN Recommend obtaining an ultrasound of the gallbladder given her abnormal liver enzymes and elevated bilirubin. Obtain blood cultures and consult infectious disease. An acute coronary event has been ruled out. Follow up with Dr. Yin upon discharge. Thank you kindly for this consultation. Nurse Practitioner note has been reviewed, I agree with a documented findings and plan of care. Patient was seen and examined. Past Medical History Past Medical History: Diabetes Mellitus, Hypertension History of Any Multi-Drug Resistant Organisms: None Reported Past Surgical History: No Surgical Hx Reported, Heart Catheterization With Stent, Tonsillectomy Additional Past Surgical History / Comment(s): Colonoscopy with polypectomy with Dr. Pavon Past Anesthesia/Blood Transfusion Reactions: No Reported Reaction Date of Last Stent Placement:: 05/25/2019 Past Psychological History: No Psychological Hx Reported Smoking Status: Never smoker Past Alcohol Use History: None Reported Additional Past Alcohol Use History / Comment(s): Patient is a lifelong nonsmoker, no alcohol use, no illicit drug use, patient does not have home oxygen, no nebulizer, no CPAP. Past Drug Use History: None Reported - Past Family History Father Additional Family Medical History / Comment(s): Father in his 60s from a myocardial infarction with history of diabetes. Mother Additional Family Medical History / Comment(s): Mother in her 50s from a motor vehicle accident. Brother(s) Additional Family Medical History / Comment(s): Patient has one brother with heart disease. Medications and Allergies Home Medications Medication Instructions Recorded Confirmed Type Aspirin EC [Ecotrin Low Dose] 81 mg PO Q48H 02/19/15 05/31/19 History amLODIPine [Norvasc] 10 mg PO DAILY 02/19/15 05/31/19 History Ascorbic Acid [Vitamin C] 2,000 mg PO DAILY 05/23/19 05/31/19 History Calcium Carbonate [Calcium] 600 mg PO DAILY 05/23/19 05/31/19 History Cinnamon Bark [Cinnamon] 1,000 mg PO DAILY 05/23/19 05/31/19 History Ezetimibe [Zetia] 10 mg PO DAILY 05/23/19 05/31/19 History Garlic 1 tab PO DAILY 05/23/19 05/31/19 History Glucosam/Oleksandr-Msm1/C/[place]/Bosw 1 tab PO BID 05/23/19 05/31/19 History [Glucosamine-Chondroitin Tablet] Magnesium 200 mg PO DAILY 05/23/19 05/31/19 History Vitamin B Complex 1 cap PO DAILY 05/23/19 05/31/19 History Zinc Gluconate [Zinc] 50 mg PO DAILY 05/23/19 05/31/19 History Cefuroxime [Ceftin] 250 mg PO BID #14 tablet 05/26/19 05/31/19 Rx Clopidogrel [Plavix] 75 mg PO DAILY #30 tab 05/26/19 05/31/19 Rx Lisinopril [Zestril] 20 mg PO DAILY #30 tab 05/26/19 05/31/19 Rx Metoprolol Tartrate [Lopressor] 50 mg PO TID #90 tab 05/26/19 05/31/19 Rx hydrALAZINE HCL [Apresoline] 50 mg PO TID #90 tab 05/26/19 05/31/19 Rx Allergies Allergy/AdvReac Type Severity Reaction Status Date / Time [place] And Derivatives Allergy Unknown Verified 05/31/19 12:31 [[place]] Penicillins Allergy Unknown Verified 05/31/19 12:31 venom-honey bee Allergy Unknown Verified 05/31/19 12:31 [bee venom (honey bee)] cortisone AdvReac Flushed/Hot Verified 05/31/19 12:31 feeling Physical Exam Vitals: Vital Signs Temp Pulse Pulse Resp BP BP BP 06/01/19 06:59 98.0 F 82 18 172/78 06/01/19 04:00 98.1 F 60 18 145/69 06/01/19 00:00 98.0 F 76 18 145/68 05/31/19 23:44 68 18 05/31/19 20:47 68 18 05/31/19 19:45 97.9 F 68 18 130/61 05/31/19 19:40 97.9 F 72 18 135/65 05/31/19 13:00 74 12 148/74 05/31/19 11:27 98.2 F 86 19 139/82 Pulse Ox 06/01/19 06:59 96 06/01/19 04:00 96 06/01/19 00:00 95 05/31/19 23:44 05/31/19 20:47 05/31/19 19:45 97 05/31/19 19:40 97 05/31/19 13:00 97 05/31/19 11:27 99 Intake and Output 05/31/19 06/01/19 06/01/19 22:59 06:59 14:59 Other: # Voids 2 1 Weight 58.513 kg Results 06/01/19 04:54 06/01/19 04:54 Cardiac Enzymes 05/31/19 05/31/19 05/31/19 Range/Units 11:43 11:43 18:06 AST 27 (14-36) U/L Troponin I <0.012 <0.012 (0.000-0.034) ng/mL 05/31/19 06/01/19 Range/Units 23:30 04:54 AST 26 (14-36) U/L Troponin I <0.012 (0.000-0.034) ng/mL Coagulation 05/31/19 Range/Units 11:43 PT 9.9 (9.0-12.0) sec APTT 22.2 (22.0-30.0) sec CBC 05/31/19 06/01/19 Range/Units 11:43 04:54 WBC 12.9 H 8.6 (3.8-10.6) k/uL RBC 5.18 4.24 (3.80-5.40) m/uL Hgb 15.4 13.1 (11.4-16.0) gm/dL Hct 46.3 H 38.3 (34.0-46.0) % Plt Count 191 D 154 (150-450) k/uL Comprehensive Metabolic Panel 05/31/19 06/01/19 Range/Units 11:43 04:54 Sodium 136 L 137 (137-145) mmol/L Potassium 4.1 4.1 (3.5-5.1) mmol/L Chloride 100 106 (98-107) mmol/L Carbon Dioxide 25 25 (22-30) mmol/L BUN 17 17 (7-17) mg/dL Creatinine 0.57 0.55 (0.52-1.04) mg/dL Glucose 216 H 179 H (74-99) mg/dL Calcium 10.2 9.5 (8.4-10.2) mg/dL AST 27 26 (14-36) U/L ALT 44 H 35 H (4-34) U/L Alkaline Phosphatase 85 73 (38-126) U/L Total Protein 7.5 6.2 L (6.3-8.2) g/dL Albumin 4.7 3.7 (3.5-5.0) g/dL Current Medications Generic Name Dose Route Start Last Admin Trade Name Freq PRN Reason Stop Dose Admin Acetaminophen 650 mg 05/31/19 13:11 Tylenol Tab PO Q6HR PRN Mild Pain or Fever > 100.5 Amlodipine Besylate 10 mg 06/01/19 09:00 Norvasc PO DAILY [facility] Aspirin 81 mg 06/01/19 09:00 Aspirin PO Q48H [facility] Clopidogrel Bisulfate 75 mg 06/01/19 09:00 Plavix PO DAILY [facility] Hydralazine HCl 50 mg 05/31/19 16:00 05/31/19 23:33 Apresoline PO 50 mg TID AL Administration Sodium Chloride 1,000 mls @ 75 mls/hr 05/31/19 13:00 06/01/19 03:04 Saline 0.9% IV Not Given .[id number] [facility] Lisinopril 20 mg 06/01/19 09:00 Zestril PO DAILY [facility] Magnesium Oxide 400 mg 06/01/19 09:00 Mag-Ox PO DAILY AL Metoprolol Tartrate 50 mg 05/31/19 16:00 05/31/19 23:33 Lopressor PO 50 mg TID AL Administration Naloxone HCl 0.2 mg 05/31/19 13:11 Narcan IV Q2M PRN Opioid Reversal Intake and Output 05/31/19 06/01/19 06/01/19 22:59 06:59 14:59 Other: # Voids 2 1 Weight 58.513 kg 06/01/19 04:54 06/01/19 04:54
[2019-06-01 14:08] LABS: Glucose,Whole Blood 205 mg/dL (75-99)
--- NOTE | 2019-06-01 15:34 | US ---
EXAMINATION TYPE: US gallbladder DATE OF EXAM: 06/01/2019 COMPARISON: NONE CLINICAL HISTORY: elevated enzymes. elevated labs, diabetic, no abd pain EXAM MEASUREMENTS: Liver Length: 14.9 cm Gallbladder Wall: 0.2 cm CBD: 0.6 cm Right Kidney: 10.7 x 4.9 x 4.6 cm Pancreas: wnl Liver: wnl Gallbladder: small shadowing stones seen on posterior wall of GB, no wall thickness or fluid seen. Evidence for sonographic Silva's sign: no CBD: wnl Right Kidney: wnl IMPRESSION: Cholelithiasis.
[2019-06-01 16:15] VITALS: BP 120/60; PULSE 71
[2019-06-01 16:26] LABS: Glucose,Whole Blood 89 mg/dL (75-99)
[2019-06-01 16:32] LABS: Appearance,Urine Clear (Clear); Bilirubin,Urine Negative (Negative); Blood,Urine Negative (Negative); Color,Urine Yellow; Glucose,Urine (UA) 2+ (Negative); Ketones,Urine Negative (Negative); Leukocyte Esterase,Urine Negative (Negative); Nitrite,Urine Negative (Negative); Protein,Urine Negative (Negative); Specific Gravity,Urine 1.019 (1.001-1.035); Urobilinogen,Urine <2.0 mg/dL (<2.0)
[2019-06-02] MEDS ORDERED: EZETIMIBE 10 MG TAB PO SCH (09:00)
[2019-06-02] MEDS ORDERED: ASPIRIN 81 MG PO SCH (09:00)
== END 2019-06-01 18:58 | disposition home or self-care (01) ==
LOC: EC 11:21 → 1SOBS 13:13
PROVIDERS: ADMIT Internal Medicine; ATTEND Internal Medicine
DX: R07.89 Other chest pain (principal); I25.10 Atherosclerotic heart disease of native coronary artery without angina pectoris; R53.1 Weakness; R53.83 Other fatigue; E11.9 Type 2 diabetes mellitus without complications; E78.5 Hyperlipidemia, unspecified; I27.20 Pulmonary hypertension, unspecified; J30.2 Other seasonal allergic rhinitis; R78.81 Bacteremia; B96.20 Unspecified Escherichia coli [E. coli] as the cause of diseases classified elsewhere; Z79.02 Long term (current) use of antithrombotics/antiplatelets; Z79.82 Long term (current) use of aspirin; Z79.899 Other long term (current) drug therapy; Z82.49 Family history of ischemic heart disease and other diseases of the circulatory system; Z83.3 Family history of diabetes mellitus; Z95.5 Presence of coronary angioplasty implant and graft; Z88.0 Allergy status to penicillin; Z88.8 Allergy status to other drugs, medicaments and biological substances; Z91.030 Bee allergy status; Z91.018 Allergy to other foods; E87.2 Acidosis; D72.829 Elevated white blood cell count, unspecified; I25.2 Old myocardial infarction; I08.1 Rheumatic disorders of both mitral and tricuspid valves; R74.8 Abnormal levels of other serum enzymes; I11.9 Hypertensive heart disease without heart failure
CPT/HCPCS: 93005 ×2; 96360; 99285; 36415; 83880; 80053 ×2; 83605; 83735 ×2; 84484; 85025 ×2; 85610; 85730; 81003; 87040; 87502; 71046; 76705; G0378 ×2

== ENCOUNTER → 2019-06-22 | Outpatient (CLI) | payer MEDICARE ==
[2019-06-22 13:39] LABS: HGB 13.5 gm/dL (11.4-16.0); MCH 30.8 pg (25.0-35.0); MCHC 33.7 g/dL (31.0-37.0); MCV 91.3 fL (80.0-100.0); Mean Platelet Volume 9.5; Platelet Count 145 k/uL (150-450); RBC 4.38 m/uL (3.80-5.40); RDW 12.8 % (11.5-15.5); WBC 11.2 k/uL (3.8-10.6)
[2019-06-22 18:33] LABS: Anion Gap 7.4 mmol/L (4.00-12.00); Carbon Dioxide 29.6 mmol/L (21.6-31.8); Non-African American GFR(CKD) 68.2 (60.0-200.0); Potassium 4.6 mmol/L (3.5-5.5)
== END | disposition home or self-care (01) ==
LOC: LABWHC1 12:58
PROVIDERS: ATTEND Internal Medicine Interventional Cardiology
DX: Z01.812 Encounter for preprocedural laboratory examination (principal); I25.10 Atherosclerotic heart disease of native coronary artery without angina pectoris
CPT/HCPCS: 36415; 80051; 82565; 84520; 85027